=== PATIENT | male | born 1955 | race Caucasian/White ===

== ENCOUNTER 2024-04-02 22:06 | Emergency (ER) | payer OTHER, SELFPAY ==
[2024-04-02 22:09] VITALS: BP 197/109; PULSE 108; RESP 16; TEMP 36.4; O2SAT 100
--- NOTE | 2024-04-02 23:59 | PC.NURSE ---
Pt and family walked out due to wait times. This RN advised them to follow up with nearest ED for new or worsening symptoms.
== END 2024-04-03 00:11 | disposition left against medical advice (07) ==
LOC: ANHED 04-03 00:08
PROVIDERS: PCP Family Medicine
DX: Z53.21 Procedure and treatment not carried out due to patient leaving prior to being seen by health care provider (principal)
CPT/HCPCS: 99199

== ENCOUNTER 2024-08-27 17:49 | Emergency (ER) | payer MEDICARE, OTHER, SELFPAY ==
--- NOTE | ~2024-08-27 | XR_ITS ---
EXAM: XR hand RT min 3V DATE: 08/27/2024 18:44 HISTORY: post reduction . COMPARISON: Same date at 6:06 PM. FINDINGS/IMPRESSION: Successful interval reduction of the third and fourth PIP joint dislocations. Sm all ossific fragments adjacent to the posteromedial and anterior aspects of the third PIP joint, uncl ear donor sites. Reviewed, dictated and finalized at location K.
--- NOTE | ~2024-08-27 | XR_ITS ---
EXAM: XR hand RT min 3V DATE: 08/27/2024 18:08 HISTORY: injury to the 3rd and 4th digits . COMPARISON: 10/12/2008. FINDINGS: Uncomplicated appearing screw and plate hardware at the distal radius. Old ulnar styloid f racture. Mild scattered degenerative change. Dislocations of the third and fourth PIP joints, with ap proximately one half shaft width medial and one shaft width posterior dislocation. A small fracture f ragment is noted along the medial aspect of the third PIP joint, unclear donor site. IMPRESSION: Fracture dislocation of the right third PIP joint. Dislocation of the right fourth PIP cassius int. Reviewed, dictated and finalized at location K. IMPRESSION: Fracture dislocation of the right third PIP joint. Dislocation of t he right fourth PIP joint.
--- OUTSIDE RECORDS SUMMARY | 2024-08-27 17:52 | XMS_ITS | Clinical Summary ---
Author Organization [facility] Address [address] [place] [address] Care Team Providers Care Health Data Administrator Name Role Phone Juan Villa MD Primary Care Provider + Allergies No known active allergies Medications ascorbic acid, vitamin C, 500 mg capsule 500 mg Ac tive calcium carbonate (CALTRATE 600 ORAL) Rx: Caltrate 600 1500 (600 Ca) MG Tablet Active ajadifcg-vuv-MD-lycopen- lutein 300-600-300 mcg tablet Rx: Centrum Silver 50+Men - Tablet Active inulin/vit D3/calcium/sorbitol (FIBER CHOICE PLUS CALCIUM ORAL) Active mecobalamin, vitamin B12, 5,000 mcg tablet,disintegrating Active vitamin D3-folic acid 125 mcg (5,000 unit)-1 mg tablet 09/17/19 21 Active levETIRAcetam XR (KEPPRA XR) 500 mg 24 hr tablet TAKE 4 TABLETS DAILY 360 tablet 3 10/23/19 24 Active clonazePAM (KlonoPIN) 1 mg tablet Take 1.5 tablets (1.5 mg total) by mouth nightly 135 tablet 1 01/23/20 24 Active PARoxetine (PAXIL) 20 mg tabletIndications:DAREN (generalized anxiety disorder),Depression, unspecified depression type TAKE 3 TABLETS EVERY MORNING 270 tablet 3 04/18/20 24 Active meloxicam (MOBIC) 15 mg tabletIndications:Osteoa rthritis, unspecified osteoarthritis type, unspecified site TAKE 1 TABLET DAILY 90 tablet 1 04/25/20 24 Active tamsulosin (FLOMAX) 0.4 mg extended release capsule 1 capsule (0.4 mg total) Take 1 cap per day. Active atorvastatin (LIPITOR) 20 mg tabletIndications:Pure hypertriglyceridemia TAKE 1 TABLET DAILY 90 tablet 1 05/31/19 25 Active Active Problems Problem Noted Date Diagnosed Date Insomnia due to medical condition 05/21/2024 Closed displaced fracture of neck of right fifth metacarpal bone 03/20/2024 Closed displaced fracture of neck of left fifth metacarpal bone 03/20/2024 Closed displaced fracture of shaft of fifth metacarpal bone of left hand 03/20/2024 Left hand pain 03/18/2024 Assessment & Plan (04/12/2024 2:28 PM TROLLEY CAR OPERATOR): - continue care per ortho Assessment & Plan (03/18/2024 4:07 PM TROLLEY CAR OPERATOR): - xray reviewed by me - displaced oblique fx of the 5th metacarpal - pt placed in ulnar gutter splint - pt to f/u with ortho hand for eval for surgery vs. Casting. Chronic right shoulder pain 10/11/2023 Assessment & Plan (10/11/2023 4:38 PM CDT): - suspect OA - continue meloxicam - referral to ortho and xray ordered Pure hypertriglyceridemia 03/31/2023 Assessment & Plan (04/12/2024 2:28 PM TROLLEY CAR OPERATOR): - stable - continue atorvastatin Assessment & Plan (10/11/2023 4:40 PM CDT): - stable - continue atorvastatin Assessment & Plan (03/31/2023 2:58 PM TROLLEY CAR OPERATOR): - stable - continue current medication Rib pain 01/25/2022 Assessment & Plan (01/25/2022 3:23 PM CDT): - suspect just bruising to area but will check xray given pt sensation of popping in the rib area with certain movements - tylenol for pain Encounter for annual wellness exam in Medicare p atient 12/21/2021 Assessment & Plan (04/12/2024 2:27 PM TROLLEY CAR OPERATOR): - Reviewed with the patient BMI, blood pressure, diet, exercise, and encouraged healthy lifestyle choices. - Screened for high risk behaviors, diet and exercise habits, and symptoms of depression. - check screening labs - encouraged regular exercise, healthy lifestyle, obtain/maintain healthy weight Assessment & Plan (03/31/2023 2:57 PM TROLLEY CAR OPERATOR): - Reviewed with the patient BMI, blood pressure, diet, exercise, and encouraged healthy lifestyle choices. - Screened for high risk behaviors, diet and exercise habits, and symptoms of depression. - reviewed screening labs - encouraged regular exercise and weight loss Assessment & Plan (12/21/2021 5:03 PM CDT): - Reviewed with the patient BMI, blood pressure, diet, exercise, and encouraged healthy lifestyle choices. - Screened for high risk behaviors, diet and exercise habits, and symptoms of depression. - check screening labs - encouraged regular exercise Benign prostatic hyperplasia with urinary hesita ncy 04/17/2020 Assessment & Plan (04/12/2024 2:28 PM TROLLEY CAR OPERATOR): - uncontrolled - offered urology referral but pt refused Assessment & Plan (10/11/2023 4:37 PM CDT): - poor control - continue flomax 1 tab daily - offered referral to urology but pt refused. Assessment & Plan (03/31/2023 2:56 PM TROLLEY CAR OPERATOR): - uncontrolled - increase flomax to 0.8mg daily - if no improvement will ref to urology for eval Assessment & Plan (02/12/2021 4:53 PM CDT): - stable - continue current medication Assessment & Plan (04/17/2020 2:15 PM TROLLEY CAR OPERATOR): - uncontrolled - start flomax - f/u in 3-6 mo for re-eval Osteoarthritis 04/17/2020 Assessment & Plan (03/31/2023 2:57 PM TROLLEY CAR OPERATOR): - stable - continue current medication Assessment & Plan (04/17/2020 2:15 PM TROLLEY CAR OPERATOR): - stable - continue current medication Depression 02/15/2019 Assessment & Plan (04/12/2024 2:27 PM TROLLEY CAR OPERATOR): - stable but still sx - continue paxil 60 mg daily - offered to start trazodone or seroquel; pt has failed wellbutrin in the past - pt not interested in further medication. Pt also refusing change in med to alternate ssri. Assessment & Plan (03/31/2023 2:57 PM TROLLEY CAR OPERATOR): - stable - continue current medication Assessment & Plan (04/17/2020 2:15 PM TROLLEY CAR OPERATOR): - stable - continue current medication Assessment & Plan (10/21/2019 1:39 PM CDT): - stable - continue paxil 60mg daily DAREN (generalized anxiety disorder) 02/15/2019 Assessment & Plan (04/12/2024 2:27 PM TROLLEY CAR OPERATOR): - stable - continue paxil as noted above. Assessment & Plan (10/11/2023 4:37 PM CDT): - uncontrolled - rec counseling - rec addition of seroquel but pt refusing - continue paxil. - f/u if sx worsen or wants to start medication. Assessment & Plan (03/31/2023 2:57 PM TROLLEY CAR OPERATOR): - stable - continue current medication Assessment & Plan (12/21/2021 8:43 PM CDT): - stable - continue current medication - add wellbutrin 150mg daily - f/u in 3 mo Assessment & Plan (04/17/2020 2:15 PM TROLLEY CAR OPERATOR): - stable - continue current medication Assessment & Plan (10/21/2019 1:39 PM CDT): - stable - continue paxil 60mg daily Overweight 02/15/2019 Assessment & Plan (10/21/2019 1:40 PM CDT): - dietary control; pt unable to exercise Other obesity due to excess calories 05/19/2017 Melanocytic nevus 12/09/2015 Seborrheic keratosis 12/09/2015 Assessment & Plan (02/12/2021 4:53 PM CDT): - pt reassured - f/u prn Cerebellar ataxia 07/27/2015 Assessment & Plan (05/25/2024 10:47 PM TROLLEY CAR OPERATOR): 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 His symptoms are worse axially compared to appendicular, and he has marked difficulty with speech and eye movements. At this time, he is unable to walk without assistance of a walker (or leaning heavily on a wall) and struggles somewhat to stand without support. 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 He also has an intermittent tremor of his head and possibly hands which is mild compared to his degree of ataxia and for which he previously took primidone (stopped in an effort to improve his balance). His symptoms are overall likely worse due to prior alcohol use, and have worsened in the past several years due to multiple family losses an stress. He continues to struggle with falls, and remains uninterested in physical therapy despite this. Last MRI in 2019 was unchanged from prior despite worsening of gait. His finger bryan and other vision-based reaching tests were worse today, although it is unclear if this is due to wearing glasses with an outdated prescription (he broke his most recent pair) or progression of his disease. No other family members have severe ataxia at this time. Despite his limitations, he continues to enjoy being outdoors and mowing the lawn and using his tractor. His panic attacks have stopped since discontinuing bupropion, and his mood is ok on paroxetine. His insomnia has responded well to 1.5 mg clonazepam at night, and he didn't tolerate a wean of this in the past. Overall he feels that he would like to not change any of his current routines or medications despite the progressive nature of his disease. He would also prefer to not have to come in to the city again if possible, and has requested telehealth visits in the future. 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 His symptoms are worse axially compared to appendicular, and he has marked difficulty with speech and eye movements. At this time, he is unable to walk without assistance of a walker (or leaning heavily on a wall) and struggles somewhat to stand without support. 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 He also has an intermittent tremor of his head and possibly hands which is mild compared to his degree of ataxia and for which he previously took primidone (stopped in an effort to improve his balance). His symptoms are overall likely worse due to prior alcohol use, and have worsened in the past two years due to multiple family losses an stress. He continues to struggle with falls, and remains uninterested in physical therapy despite this. Last MRI in 2019 was unchanged from prior despite worsening of gait. His finger bryan and other vision-based reaching tests were worse today, although it is unclear if this is due to wearing glasses with an outdated prescription (he broke his most recent pair) or progression of his disease. No other family members have severe ataxia at this time. Despite his limitations, he continues to enjoy being outdoors and mowing the lawn and using his tractor. His panic attacks have stopped since discontinuing bupropion, and his mood is ok on paroxetine. His insomnia has responded well to 1.5mg clonazepam at night, and he does poorly if this is discontinued. Overall he feels that he would like to not change any of his current routines or medications despite the progressive nature of his disease. He would also prefer to not have to come in to the city again if possible, and has requested telehealth visits in the future. Plan: - Continue levetiracetam 500mg - Continue clonazepam 1.5mg qHS - If ever interested in PT would strongly support this, but it seems unlikely - Continue to use walker at all times, avoid falls - Continue paroxetine, can consider switching to escitalopram (better data) or adding a second agent (consider mirtazapine or trazodone) if depression is refractory - Telehealth visits in the future, follow up with Genoveva in [address] 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 This likely represents spinocerebellar ataxia with some exacerbation due to alcohol use in the past. His myoclonus is seldom bothersome with the current dose of Keppra although he thinks worse in the past few years--he is not interested in trying a bigger dose at this time. His gait and balance are much worse in the past few years and he has frequent falls, up to twice/day but is still using his walker and is completely opposed to any PT, OT, ST or home exercise program. Stopping primidone did not help much with the balance but also did not really worsen tremor. His MRI ordered by Dr. Muller in 06/2019 was reviewed by him and reportedly pretty normal with no explanation for the worsened balance. He still mows grass and works in his yard. His depression is decent on paroxetine and bupropion and--he is grieving the sudden and unexpected loss of his --his daughter and her children live with him. His sleep and jerking are better with clonazepam at 1.5 mg at bedtime, and he doesn't note too much morning grogginess or worsened balance so we will continue this. Tamsulosin has helped nocturia though he still has issues with slow stream and incomplete emptying and could discuss a bigger dose with PMD but would need to watch for lightheadedness. Recommendations 1. Same Keppra (could consider bigger dose), same paroxetine. 2. Could discuss more tamsulosin with PMD but would need to watch for lightheadedness. 3. Not interested in PT or APDA youtube channel exercises. 4. Use upright walker, wheelchair as needed. 5. Same paroxetine and bupropion. 6. Same clonazepam--1.5 tabs qhs. 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 This likely represents spinocerebellar ataxia with some exacerbation due to alcohol use in the past. His myoclonus is seldom bothersome with the current dose of Keppra although he thinks worse in the past few years--he is not interested in trying a bigger dose at this time. His gait and balance are much worse in the past few years and he has frequent falls, up to twice/day but is still using his walker and is completely opposed to any PT, OT, ST or home exercise program. Stopping primidone did not help much with the balance but also did not really worsen tremor. His MRI ordered by Dr. Muller in 06/2019 was reviewed by him and reportedly pretty normal with no explanation for the worsened balance. He still mows grass and works in his yard. His depression is decent on paroxetine and bupropion and--he is grieving the sudden and unexpected loss of his --his daughter and her children live with him. His sleep and jerking are better with clonazepam at 1.5 mg at bedtime, and he doesn't note too much morning grogginess or worsened balance so we will continue this. Tamsulosin has helped nocturia though he still has issues with slow stream and incomplete emptying and could discuss a bigger dose with PMD but would need to watch for lightheadedness. Recommendations 1. Same Keppra (could consider bigger dose), same paroxetine. 2. Could discuss more tamsulosin with PMD but would need to watch for lightheadedness. 3. Not interested in PT or APDA youtube channel exercises. 4. Use upright walker, wheelchair as needed. 5. Same paroxetine and bupropion. 6. Same clonazepam--1.5 tabs qhs. 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 This likely represents spinocerebellar ataxia with some exacerbation due to alcohol use in the past. His myoclonus is seldom bothersome with the current dose of Keppra although he thinks worse in the past few years--he is not interested in trying a bigger dose at this time. His gait and balance are much worse in the past few years and he has frequent falls, up to twice/day. Stopping primidone did not help much with the balance but also did not really worsen tremor. His MRI ordered by Dr. Muller in 06/2019 was reviewed by him and reportedly pretty normal with no explanation for the worsened balance. He refuses PT but I gave him info on APDA youtube channel exercises. He is still able to walk with a walker and still mows grass and works in his yard. His depression is decent on paroxetine and he is on a large dose and not interested in adding on another medicine (bupropion) or switching to an SNRI at this point--he is grieving the sudden and unexpected loss of his --his daughter and her children live with him. His sleep and jerking are better with clonazepam at 1.5 mg at bedtime, and he doesn't note too much morning grogginess or worsened balance so we will continue this. Tamsulosin has helped nocturia though he still has issues. Recommendations 1. Same Keppra (could consider bigger dose), same paroxetine. 2. Start APDA youtube channel exercises. 3. Not interested in PT. 4. Use upright walker, wheelchair as needed. 5. Could consider switching paroxetine to SNRI or adding bupropion but he is not interested at this time. 6. Same clonazepam--1.5 tabs qhs. 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 This likely represents spinocerebellar ataxia with some exacerbation due to alcohol use in the past. His myoclonus is still a bit bothersome with the current dose of Keppra and he thinks worse in the past few years--he is not interested in trying a bigger dose at this time. His gait and balance are much worse in the past few years and he has frequent falls. Stopping primidone did not help much with the balance but also did not really worsen tremor. His MRI ordered by Dr. Muller in 06/2019 was reviewed by him and reportedly pretty normal with no explanation for the worsened balance. His depression is decent on paroxetine and he is on a large dose and not interested in adding on another medicine (bupropion) or switching to an SNRI. His sleep is only so-so with clonazepam and he still could have some jerking at night. We will try to increase clonazepam to 1.5 mg at bedtime, watching for morning grogginess or worsened balance. He does have a power chair. He is not interested in PT but I gave him info on APDA youtube exercises (though he does not have PD) and I suggested he use his walker at all times. Tamsulosin has helped nocturia though he still has issues. We will see if extra clonazepam helps though they could try bid or higher dose of tamsulosin but would need to watch for lightheadedness. Recommendations 1. Same Keppra (could consider bigger dose), same paroxetine. 2. Start APDA youtube channel exercises. 3. Not interested in PT. 4. Use upright walker. 5. Could consider switching paroxetine to SNRI or adding bupropion. 6. Increase clonazepam to 1.5 tabs qhs. 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 This likely represents spinocerebellar ataxia with some exacerbation due to alcohol use in the past. His myoclonus is reasonably well controlled with the current dose of Keppra. His gait and balance are much worse in the past few years and he has frequent falls. Stopping primidone did not help much with the balance but also did not really worsen tremor. His MRI ordered by Dr. Muller in 06/2019 was reviewed by him and reportedly pretty normal with no explanation for the worsened balance. His depression is well controlled on paroxetine. His sleep is fairly good with clonazepam though he still could have some jerking at night. He is not interested in PT but I gave him info on APDA youtube exercises (though he does not have PD) and I suggested he use his walker at all times. Tamsulosin has dramatically helped nocturia. Recommendations 1. Same Keppra, same paroxetine. 2. Start APDA youtube channel exercises. 3. Not interested in PT. 4. Use walker (he refuses). 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 This likely represents spinocerebellar ataxia with some exacerbation due to alcohol use in the past. His myoclonus is reasonably well controlled with the current dose of Keppra. His gait and balance are much worse in the past year. Stopping primidone did not help much with the balance but also did not really worsen tremor. His MRI ordered by Dr. Muller in 06/2019 was reviewed by him and reportedly pretty normal with no explanation for the worsened balance. His depression is well controlled on paroxetine. His sleep is fairly good with clonazepam though he still could have some jerking at night. He is not interested in PT but I gave him info on APDA youtube exercises (though he does not have PD). He has some incomplete emptying and I suggested he discuss tamsulosin with his PMD but watch for lightheadedness. Recommendations 1. Same Keppra, same paroxetine. 2. Start APDA youtube channel exercises. 3. Could consider tamsulosin with PMD if he is in interested. 4. Not interested in PT. 5. Use walker (he refuses). Essential tremor 04/16/2010 Assessment & Plan (04/12/2024 2:26 PM TROLLEY CAR OPERATOR): - stable - continue current medication Assessment & Plan (03/31/2023 2:57 PM TROLLEY CAR OPERATOR): - stable - continue current medication Resolved Problems Problem Noted Date Diagnosed Date Resolved Date Cerebral ataxia 10/17/2023 10/17/2023 Sepsis without acute organ dysfunction 12/01/2021 03/29/2023 Acute cholecystitis 12/01/2021 03/29/20 23 Sleep disturbance 02/15/2019 03/29/2023 Assessment & Plan (10/21/2019 1:40 PM CDT): - continue clonazepam for sleep disturbance due to ataxia Major depressive disorder, single episode 05/19/2017 04/12/2024 Assessment & Plan (10/11/2023 4:37 PM CDT): - uncontrolled - rec counseling - rec addition of seroquel but pt refusing - continue paxil. - f/u if sx worsen or wants to start medication. Assessment & Plan (03/31/2023 2:57 PM TROLLEY CAR OPERATOR): - stable - continue current medication - f/u in 6 mo or sooner prn Assessment & Plan (01/25/2022 3:24 PM CDT): - stable - continue current medication - encouraged pt to get counselor - consider increased dose of paxil if sx not improved over next month. - f/u in Nov or sooner prn Assessment & Plan (12/21/2021 8:42 PM CDT): - uncontrolled - will add wellbutrin 150mg daily - f/u in 3 mo Encounters Date Type Department Care Team Description 05/29/2024 1:30 PM TROLLEY CAR OPERATOR Office Visit [facility] [address] [place] [address] [place] [phone] Fawad Cook MD Closed displaced fracture of shaft of fifth metacarpal bone of left hand with delayed healing, subsequent encounter (Primary Dx) 05/29/2024 12:50 PM TROLLEY CAR OPERATOR Ancillary Procedure [facility] [address] [place] [address] [place] [phone] from Last 3 Months Immunizations Immunization Administration Dates Next Due Influenza, Quadrivalent, Hig h Dose, Preservative Free, Intrr 03/31/2023,01/25/2022 Influenza, Quadrivalent, Spl it, Preservative Free, Intramuscular 02/15/2019,01/26/2015,12/24/2014 Influenza, Unspecified 03/18/2024(Deferr ed: Patient Refused),01/13/2021 ISO Group SARS-CoV-2 Monovalent Vaccination (12+ Yrs) PURPLE 01/13/2021,12/23/2020 Pneumococcal Conjugate PCV 13 12/21/2021 Pneumococcal Conjugate Pcv20 03/31/2023 Tdap 10/28/2015 ZOSTER LIVE 08/27/2014 Surgical History Surgery Date Site/Laterality Comments WRIST SURGERY 09/29/2008 - 10/28/2008 Right KNEE SURGERY 09/29/2008 - 10/28/2008 Right CHOLECYSTECTOMY 02 Dec 2021 ORIF METACARPAL FRACTURE 03/26/2024 Left 5TH OR AND PINNING FRACTURE SURGERY 12 Oct 2008, 26 Mar 2024 Medical History Medical History Date Comments Depression BPH (benign prostatic hyperplasia) Tremors of nervous system Cerebellar ataxia (HCC) Alcohol abuse 1989 COPD (chronic obstructive pulmonary disease) (HC C) Family History Medical History Relation Name Comments Alcohol abuse Brother 2 Logan Gillis Drug abuse Daughter 2 July [place] Kidney disease Daughter 3 Varsha Gillis Miscarriages / Stillbirths Daughter 4 Shawna Hankins Alcohol abuse Father Markell Elis Cancer Father Markell Elis Depression Father Markell Elis Alcohol abuse Father's Brother 1 Almira Elis Depression Father's Brother 1 Almira Elis Alcohol abuse Father's Brother 2 Ari Dykese Cancer Father's Brother 2 Ari Elis Depression Father's Brother 2 Ari Dykese Alcohol abuse Father's Brother 3 Cristobal Gillis Alzheimer's disease Father's Sister Luigi Harrison Hearing loss Mother Wili Gillis Heart disease Paternal Grandfather Melecio Gillis Relation Name Status Comments Brother 1 Brother 2 Logan Gillis Daughter 1 Alive Daughter 2 July Daughter 3 Varsha Gillis Daughter 4 Shawna Hankins Father Markell Gillis (Age 80) Father's Brother 1 Jose Dykese Father's Brother 2 Ari Dykese Father's Brother 3 Cristobal Dykese Father's Sister Luigi Harrison Mother Wili Gillis Alive Paternal Grandfather Melecio Gillis Sister Alive Social History Tobacco Use Types Packs/Day Years Used Date Smoking Tobacco: Never Cigarettes Smokeless Tobacco: Current Snuff Tobacco Cessation:Ready to Q uit: No; Counseling Given: Not Answered Comments:Didn't start until I when through an alcohol rehab Alcohol Use Standard Drinks/Week Comments Not Currently 0 (1 standard drink = 0.6 oz pur e alcohol) AUDIT-C Answer Date Recorded Q1: How often do you have a drink containing alcohol? Never 04/12/2024 Q2: How many drinks containi ng alcohol do you have on a typical day when you are drinking? Patient does not drink Q3: How often do you have si x or more drinks on one occasion? Never 04/12/2024 PHQ-2 Answer Date Recorded PHQ-2 Total Score (If total score is 3 or more points, staff should administer the PHQ-9) 3 04/11/2024 PHQ-9 Answer Date Recorded PHQ-9 Total Score 5 04/11/2024 Personal Safety Answer Date Recorded Have you ever been in or are you currently in a harmful physical or emotional relationship or is someone making you feel afraid or unsafe? Denies 03/26/2024 Sex and Gender Information Value Date Recorded Sex Assigned at Not on file Legal Sex Male 3:22 AM TROLLEY CAR OPERATOR Gender Identity Male 01/14/2019 8:10 PM CDT Sexual Orientation Straight 01/14/2019 8: 10 PM CDT Obstetrics History Last Filed Vital Signs Vital Sign Reading Time Taken Comments Blood Pressure 108/80 04/12/2024 1:55 PM TROLLEY CAR OPERATOR Pulse 96 04/12/2024 1:55 PM TROLLEY CAR OPERATOR Temperature 36.8 C (98.2 F) 04/12/2024 1:55 PM TROLLEY CAR OPERATOR Respiratory Rate 22 04/12/2024 1:55 PM TROLLEY CAR OPERATOR Oxygen Saturation 95% 04/12/2024 1:55 PM TROLLEY CAR OPERATOR Inhaled Oxygen Concentration - - Weight 98.2 kg (216 lb 8 oz) 04/12/2024 1:55 PM TROLLEY CAR OPERATOR Height 180.3 cm (5' 11 ) 04/15/2024 9:50 AM TROLLEY CAR OPERATOR Body Mass Index 30.2 04/12/2024 1:55 PM TROLLEY CAR OPERATOR Plan of Treatment Health Maintenance Due Date Last Done Comments Hepatitis C Screening 1955 Hepatitis B Screening 1974 Zoster Vaccine (2 of 3) 10/22/2014 08/27/2014 Covid-19 Vaccine (3 - 2023-2 5 season) 2023 01/13/2021, 12/23/2020 Influenza Vaccine (Season Ended) 2024 03/31/2023, 01/25/2022, 01/13/2021, Additional history exists Prostate Cancer Screening-PSA 03/17/2025, 12/02/2021, 04/17/2020, Additional history exists Colon Cancer Screening-Colonoscopy 03/20/2025 03/20/2015 Depression Screening 04/12/2025 04/12/2024, 04/12/2024, 03/31/2023, Additional history exists Fall Risk Assessment 04/12/2025 04/12/2024, 03/26/2024, 03/31/2023, Additional history exists Well Visit 65+ 04/12/2025 04/12/2024, 1205/2022, 12/21/2021, Additional history exists DTaP/Tdap/Td Vaccine (2 - Td or Tdap) 10/27/2025 10/28/2015 Colon Cancer Screening-CT Colonography Discontinued 03/20/2015 Colon Cancer Screening-DNA Stool Discontinued 03/20/20 Colon Cancer Screening-FIT Discontinued 03/20/2015 Colon Cancer Screening-Sigmoidoscopy Discontinued 03/20/2015 Pneumococcal vaccine 65+ Completed 03/31/2023, 11/30 Medical Devices Implanted Type Area Smooth Stucco Resurfacer Device Identifier Shelf Expiration Date Model / Serial / Lot Right Wrist Right: Wrist Knee Replacement Right: Knee 1.1 K-Wire Implanted:Qty: 2 on 03/26/2024 by Fawad Cook MD at [facility] Left: Metacarpal AR[employer] [id number] 3 / / Explanted Type Area Smooth Stucco Resurfacer Device Identifier Shelf Expiration Date Model / Serial / Lot [employer] Plate Bone Rotation Correction 5 Hole Small Bone 1.6mm Ti [id number] - [id number] Explanted:Qty: 1 on 03/26/2024 by Fawad Cook MD at [facility] Plate Left: Metacarpal [employer] [id number] / / [employer] Screw Bone Cortical Threaded 1.6x8mm Ti [id number] - [id number] Explanted:Qty: 1 on 03/26/2024 by Fawad Cook MD at [facility] Screw Left: Metacarpal [employer] [id number] 8 / / [employer] Screw Bone Threaded Locking 1.6x12mm Ti [id number] - [id number] Explanted:Qty: 1 on 03/26/2024 by Fawad Cook MD at [facility] Screw Left: Metacarpal [employer] [id number]- 12 / / Procedures Procedure Name Priority Date/Time Associated Diagnosis Comments XR HAND LEFT 3 OR MORE VIEWS Schedule Routine, Read Routine (OP Routine) 05/30/2024 6:25 AM TROLLEY CAR OPERATOR Closed displaced fracture of shaft of fifth metacarpal bone of left hand with delayed healing, subsequent encounter PSA SCREEN Routine 03/17/2023 1:51 PM TROLLEY CAR OPERATOR Encounter for Medicare annual wellness exam COLONOSCOPY Routine 03/20/2015 from Last 3 Months or Most Recently Relevant to Health Maintenance Results * XR Hand Left 3 or More Views (05/30/2024 6:25 AM TROLLEY CAR OPERATOR) Anatomical Region Laterality Modality Upper Extremities, Hand Left Computed Radiography Narrative 05/30/2024 6:25 AM TROLLEY CAR OPERATOR AP lateral and oblique x-rays of the left hand on the mini C-arm show healing of a 5th metacarpal fracture Fawad Cook MD IMG XR PROCEDURES Final Result * PSA screen (03/17/2023 1:51 PM TROLLEY CAR OPERATOR) PSA-Total 3.17 <=5.40 ng/mL HEIDI Comment: Interpretive Data AGE SEX REFERENCE INTERVAL 0 minutes-150 years Female None 0 minutes-49 years Male None 50-59 years Male 0-3.90 60-69 years Male 0-5.40 70-79 years Male 0-6.20 80-150 years Male 0-6.20 The Wilber PSA Total assay procedure was used. Results from different manufacturers or methods may not be comparable. Serial testing should be performed using the same method. Current interpretive data last revised 21. Testing performed by: [facility], [address] [place] [address]., [id number] Blood 03/17/2023 1:51 PM TROLLEY CAR OPERATOR 03/17/2023 5:03 PM TROLLEY CAR OPERATOR Juan Villa MD LAB BLOOD ORDERABLES Fin al Result Performing Organization Address City/State/[facility] Co de Phone Number HEIDI [address] [facility] Department [place] [address] * Colonoscopy (03/20/2015) Anatomical Region Laterality Modality Other 03/20/2015 Historical Provider ENDOSCOPY PROCEDURES Deneen l Result from Last 3 Months or Most Recently Relevant to Health Maintenance Insurance MEDICARE FOR LIFE [place] [id number] MEDICARE FOR LIFE Advance Directives For more information, please contact: [phone] * LIMITED - No CPR (Latest Code Status on File) Date Activated Date Inactivated Comments 12/01/2021 11:19 PM 12/04/2021 5:16 PM Question Answer Comments Provide aggressive medical m anagement before a full cardiopulmonary arrest occurs. Use antibiotics, IV Fluids, and medical treatment unless specifically selected below: No intubation Discussed with the following attending physician : No intubation/no cpr * Full Code Date Activated Date Inactivated Comments 12/01/2021 7:23 PM 12/01/2021 11:19 PM Care Teams Health Data Administrator Relationship Specialty Start Date End Date Juan Villa MD [address] [place] [id number] PCP - General Family Medicine 02/15/19
--- OUTSIDE RECORDS SUMMARY | 2024-08-27 17:52 | XMS_ITS | Referral Summary ---
Author Organization [facility] Address [address] [place] [address] Care Team Providers Care Director Process Name Role Phone Juan Villa MD Primary Care Provider + Encounters Date Type Department Care Team Description 05/29/2024 12:50 PM MARKETING SERVICES COORDINATOR Ancillary Procedure [facility] [address] [place] [address] [address] [place] [address] 05/29/2024 1:30 PM MARKETING SERVICES COORDINATOR Office Visit [facility] [address] [place] [address] [address] [place] [address] Fawad Cook MD Closed displaced fracture of shaft of fifth metacarpal bone of left hand with delayed healing, subsequent encounter (Primary Dx) from Last 3 Months Allergies No known active allergies Medications ascorbic acid, vitamin C, 500 mg capsule 500 mg Ac tive calcium carbonate (CALTRATE 600 ORAL) Rx: Caltrate 600 1500 (600 Ca) MG Tablet Active horypovl-wpr-AF-lycopen- lutein 300-600-300 mcg tablet Rx: Centrum Silver 50+Men - Tablet Active inulin/vit D3/calcium/sorbitol (FIBER CHOICE PLUS CALCIUM ORAL) Active mecobalamin, vitamin B12, 5,000 mcg tablet,disintegrating 21 Active vitamin D3-folic acid 125 mcg (5,000 [...] 03/18/2024 Assessment & Plan (04/12/2024 2:28 PM MARKETING SERVICES COORDINATOR): - continue care per ortho Assessment & Plan (03/18/2024 4:07 PM MARKETING SERVICES COORDINATOR): - xray reviewed by me - displaced [...] 03/31/2023 Assessment & Plan (04/12/2024 2:28 PM MARKETING SERVICES COORDINATOR): - stable - continue atorvastatin Assessment & Plan (10/11/2023 4:40 PM CDT): - stable - continue atorvastatin Assessment & Plan (03/31/2023 2:58 PM MARKETING SERVICES COORDINATOR): - stable - continue current medication Rib pain 01/25/2022 Assessment & Plan (01/25/2022 3:23 PM CDT): - suspect just bruising to area but will check xray given pt sensation of popping in the rib area with certain movements - tylenol for pain Encounter for annual wellness exam in Medicare p atient 12/21/2021 Assessment & Plan (04/12/2024 2:27 PM MARKETING SERVICES COORDINATOR): - Reviewed with the patient BMI, blood pressure, diet, exercise, and encouraged healthy lifestyle choices. - Screened for high risk behaviors, diet and exercise habits, and symptoms of depression. - check screening labs - encouraged regular exercise, healthy lifestyle, obtain/maintain healthy weight Assessment & Plan (03/31/2023 2:57 PM MARKETING SERVICES COORDINATOR): - Reviewed with the patient BMI, blood [...] 04/17/2020 Assessment & Plan (04/12/2024 2:28 PM MARKETING SERVICES COORDINATOR): - uncontrolled - offered urology referral but pt refused Assessment & Plan (10/11/2023 4:37 PM CDT): - poor control - continue flomax 1 tab daily - offered referral to urology but pt refused. Assessment & Plan (03/31/2023 2:56 PM MARKETING SERVICES COORDINATOR): - uncontrolled - increase flomax to 0.8mg daily - if no improvement will ref to urology for eval Assessment & Plan (02/12/2021 4:53 PM CDT): - stable - continue current medication Assessment & Plan (04/17/2020 2:15 PM MARKETING SERVICES COORDINATOR): - uncontrolled - start flomax - f/u in 3-6 mo for re-eval Osteoarthritis 04/17/2020 Assessment & Plan (03/31/2023 2:57 PM MARKETING SERVICES COORDINATOR): - stable - continue current medication Assessment & Plan (04/17/2020 2:15 PM MARKETING SERVICES COORDINATOR): - stable - continue current medication Depression 02/15/2019 Assessment & Plan (04/12/2024 2:27 PM MARKETING SERVICES COORDINATOR): - stable but still sx - continue paxil 60 mg daily - offered to start trazodone or seroquel; pt has failed wellbutrin in the past - pt not interested in further medication. Pt also refusing change in med to alternate ssri. Assessment & Plan (03/31/2023 2:57 PM MARKETING SERVICES COORDINATOR): - stable - continue current medication Assessment & Plan (04/17/2020 2:15 PM MARKETING SERVICES COORDINATOR): - stable - continue current medication Assessment & Plan (10/21/2019 1:39 PM CDT): - stable - continue paxil 60mg daily DAREN (generalized anxiety disorder) 02/15/2019 Assessment & Plan (04/12/2024 2:27 PM MARKETING SERVICES COORDINATOR): - stable - continue paxil as noted above. Assessment & Plan (10/11/2023 4:37 PM CDT): - uncontrolled - rec counseling - rec addition of seroquel but pt refusing - continue paxil. - f/u if sx worsen or wants to start medication. 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 Assessment & Plan (03/31/2023 2:56 PM MARKETING SERVICES COORDINATOR): - stable - continue current medication per [...] 04/16/2010 Assessment & Plan (04/12/2024 2:26 PM MARKETING SERVICES COORDINATOR): - stable - continue current medication Assessment & Plan (03/31/2023 2:57 PM MARKETING SERVICES COORDINATOR): - stable - continue current medication Resolved [...] medication. Assessment & Plan (03/31/2023 2:57 PM MARKETING SERVICES COORDINATOR): - stable - continue current medication - [...] 150mg daily - f/u in 3 mo Immunizations Immunization Administration Dates Next Due Influenza, Quadrivalent, Hig h Dose, Preservative Free, Intrr 03/31/2023,01/25/2022 Influenza, Quadrivalent, Spl it, Preservative Free, Intramuscular 02/15/2019,01/26/2015,12/24/2014 Influenza, Unspecified 03/18/2024(Deferr ed: Patient Refused),01/13/2021 FK [employer] SARS-CoV-2 Monovalent Vaccination (12+ Yrs) PURPLE 01/13/2021,12/23/2020 Pneumococcal Conjugate PCV 13 12/21/2021 Pneumococcal Conjugate Pcv20 03/31/2023 Tdap 10/28/2015 ZOSTER LIVE 08/27/2014 Social History Tobacco Use Types Packs/Day Years [...] on file Legal Sex Male 3:22 AM MARKETING SERVICES COORDINATOR Gender Identity Male 01/14/2019 8:10 PM CDT Sexual Orientation Straight 01/14/2019 8: 10 PM CDT Last Filed Vital Signs Vital Sign Reading Time Taken Comments Blood Pressure 108/80 04/12/2024 1:55 PM MARKETING SERVICES COORDINATOR Pulse 96 04/12/2024 1:55 PM MARKETING SERVICES COORDINATOR Temperature 36.8 C (98.2 F) 04/12/2024 1:55 PM MARKETING SERVICES COORDINATOR Respiratory Rate 22 04/12/2024 1:55 PM MARKETING SERVICES COORDINATOR Oxygen Saturation 95% 04/12/2024 1:55 PM MARKETING SERVICES COORDINATOR Inhaled Oxygen Concentration - - Weight 98.2 kg (216 lb 8 oz) 04/12/2024 1:55 PM MARKETING SERVICES COORDINATOR Height 180.3 cm (5' 11 ) 04/15/2024 9:50 AM MARKETING SERVICES COORDINATOR Body Mass Index 30.2 04/12/2024 1:55 PM MARKETING SERVICES COORDINATOR Plan of Treatment Not on file Medical Devices Implanted Type Area Dry Room Operator Device Identifier Shelf Expiration Date Model / Serial / Lot Right Wrist Right: Wrist Knee Replacement Right: Knee 1.1 K-Wire Implanted:Qty: 2 on 03/26/2024 by Fawad Cook MD at [facility] Left: Metacarpal [employer] [id number] 3 / / Explanted Type Area Dry Room Operator Device Identifier Shelf Expiration Date Model / Serial / Lot [employer] Plate Bone Rotation Correction 5 Hole Small Bone 1.6mm Ti [id number] - [id number] Explanted:Qty: 1 on 03/26/2024 by Fawad Cook MD at [facility] Plate Left: Metacarpal [employer] [id number] 30 / / [employer] Screw Bone Cortical Threaded 1.6x8mm Ti [id number] - [id number] Explanted:Qty: 1 on 03/26/2024 by Fawad Cook MD at [facility] Screw Left: Metacarpal [employer] [id number] 8 / / [employer] Screw Bone Threaded Locking 1.6x12mm Ti [id number] - [id number] Explanted:Qty: 1 on 03/26/2024 by Fawad Cook MD at [facility] Screw Left: Metacarpal [employer] [id number] 12 / / Procedures Procedure Name Priority Date/Time Associated Diagnosis Comments XR HAND LEFT 3 OR MORE VIEWS Schedule Routine, Read Routine (OP Routine) 05/30/2024 6:25 AM MARKETING SERVICES COORDINATOR Closed displaced fracture of shaft of fifth metacarpal bone of left hand with delayed healing, subsequent encounter PSA SCREEN Routine 03/17/2023 1:51 PM MARKETING SERVICES COORDINATOR Encounter for Medicare annual wellness exam COLONOSCOPY Routine 03/20/2015 from Last 3 Months or Most Recently Relevant to Health Maintenance Results * XR Hand Left 3 or More Views (05/30/2024 6:25 AM MARKETING SERVICES COORDINATOR) Anatomical Region Laterality Modality Upper Extremities, Hand Left Computed Radiography Narrative 05/30/2024 6:25 AM MARKETING SERVICES COORDINATOR AP lateral and oblique x-rays of the left hand on the mini C-arm show healing of a 5th metacarpal fracture Fawad Cook MD IMG XR PROCEDURES Final Result * PSA screen (03/17/2023 1:51 PM MARKETING SERVICES COORDINATOR) PSA-Total 3.17 <=5.40 ng/mL HEIDI Comment: Interpretive [...] data last revised 21. Testing performed by: [facility], [address] [place] [address]., [id number] Blood 03/17/2023 1:51 PM MARKETING SERVICES COORDINATOR 03/17/2023 5:03 PM MARKETING SERVICES COORDINATOR Juan Villa MD LAB BLOOD ORDERABLES Fin al Result Performing Organization Address City/State/ZIP Co ny Phone Number R[facility] [address] [facility] Department [place] [address] * Colonoscopy (03/20/2015) Anatomical Region Laterality Modality Other 03/20/2015 Holger Provider ENDOSCOPY PROCEDURES Deneen l Result from Last 3 Months or Most Recently Relevant to Health Maintenance Insurance MEDICARE [facility] [place] [id number] [place] [address] MEDICARE FOR LIFE Advance Directives For more information, please contact: [phone] * LIMITED - No CPR (Latest Code [...] 7:23 PM 12/01/2021 11:19 PM Care Teams Director Process Relationship Specialty Start Date End Date Juan Villa MD [address] [place] [id number] PCP - General Family Medicine 02/15/19
--- OUTSIDE RECORDS SUMMARY | 2024-08-27 17:52 | XMS_ITS | Clinical Summary ---
Author Organization [facility] Address [address] [place] [address] Care Team Providers Care Cow Puncher Name Role Phone Walter Craven MD Primary Care Provider [phone] Social History Tobacco Use Types Packs/Day Years Used Date Smoking Tobacco: Never Assessed Sex and Gender Information Value Date Recorded Sex Assigned at Not on file Legal Sex Male 5:12 PM CDT Gender Identity Not on file Sexual Orientation Not on file Last Filed Vital Signs Vital Sign Reading Time Taken Comments Blood Pressure 124/84 10/28/2016 2:16 PM CDT Pulse 97 10/28/2016 2:16 PM CDT Temperature - - Respiratory Rate - - Oxygen Saturation - - Inhaled Oxygen Concentration - - Weight 100.7 kg (222 lb) 10/28/2016 2:16 PM CDT Height 180.3 cm (5' 11 ) 10/28/2016 2:16 PM CDT Body Mass Index 30.96 10/28/2016 2:16 PM CDT Plan of Treatment Health Maintenance Due Date Last Done Comments Colorectal Cancer Screening Colonoscopy (10 Years) 1955 Hepatitis C 1974 Pneumococcal Vaccine: 50+ Ye ars (1 of 1 - PCV) 2006 Zoster Vaccines (1 of 2) 2006 COVID-19 Vaccine ( - 2023-2 5 season) 2023 DTaP, Tdap and Td Vaccines ( 2 - Td or Tdap) 10/27/2025 10/28/2015 RSV Immunization or 60+ Years (1 - 1-dose 75+ series) 07/17/2031 Meningococcal B Vaccine Aged Out No l onger eligible based on patient's age to complete this topic Meningococcal Vaccine Aged Out No hedy tierney eligible based on patient's age to complete this topic RSV Immunizations Under 20 Months Aged Out No longer eligible based on patient's age to complete this topic Advance Directives Documents on File Type Date Recorded Patient Softball Winder Expl anation Advance Directives and Living Will 10/28/2016 SADVANCE DIRECTIVES Care Teams Cow Puncher Relationship Specialty Start Date End Date Walter Craven MD [address] [place] [address] PCP - General 10/28/15
[2024-08-27 17:57] VITALS: BP 143/95; PULSE 87; RESP 16; TEMP 36.7; O2SAT 98
--- NOTE | 2024-08-27 18:44 | ED.UPPEXIN ---
HPI - Extremity Injury (Upper) General Chief Complaint: Extremity Injury, Upper Stated Complaint: Fall, injury to right middle and ring fingers Time Seen by Provider: 08/27/24 18:12 Source: patient Mode of arrival: ambulatory Limitations: no limitations History of Present Illness HPI narrative: Patient presents to the emergency department for right 3rd and 4th finger injuries. Patient tripped and fell and caught himself with his right hand. He did not hit his head or lose consciousness. Denies any other injuries or focal areas of pain. Reports decreased range of motion in the 3rd and 4th fingers with deformities. Denies numbness. Related Data Allergies Allergy/AdvReac Type Severity Reaction Status Date / Time No Known Allergies Allergy Mild Unverified 08/27/24 17:50 Review of Systems Review of Systems: CONSTITUTIONAL: Denies fever MUSCULOSKELETAL: Reports joint pain, and myalgia. NEUROLOGIC: Denies numbness All systems reviewed & are unremarkable except as noted in HPI and below PMFSH Past Medical History Medical History (Updated 08/27/24 @ 19:28 by Cecilia Butler PA-C) History of seizure disorder History of hyperlipidemia Exam Narrative: GENERAL: Well-appearing, well-nourished, and in no acute distress. HEAD: Normocephalic, atraumatic. EYES: EOMI. EXTREMITIES: Decreased active range of motion in the right 3rd and 4th finger with obvious deformity at the PIP joints SKIN: Warm, dry, no rash. NEURO: No focal deficits. Alert and oriented x3. PSYCH: Normal mood and affect Course Course Emergency Course: Patient updated on his workup and agrees with plan of care Vital Signs Vital signs: Vital Signs Temperature 98.1 F 08/27/24 17:57 Pulse Rate 87 08/27/24 17:57 Respiratory Rate 16 08/27/24 17:57 Blood Pressure 143/95 H 08/27/24 17:57 Pulse Oximetry 98 08/27/24 17:57 Oxygen Delivery Room Air 08/27/24 17:57 Temperature 98.1 F 08/27/24 17:57 Pulse Rate 87 08/27/24 17:57 Respiratory Rate 16 08/27/24 17:57 Blood Pressure 143/95 H 08/27/24 17:57 Pulse Oximetry 98 08/27/24 17:57 Oxygen Delivery Room Air 08/27/24 17:57 Procedures Orthopedic Joint Reduction Joint #1: Orthopedic Joint Reduction Date: 08/27/24 Time Out Performed: Yes Side: right Joint Reduction Location: finger (3rd) Analgesia: nerve block Pre-Procedure Neuro Vascular Exam: normal Local Anesthesia: lidocaine 1% Amount of anesthesic used (mL): 2 Technique used: direct manipulation Post-reduction neuro exam: intact Post-reduction vascular: intact Post Reduction X-Ray Obtained: Yes Post Reduction X-Ray Results: reduced Splint Applied: Yes Patient Tolerated Procedure: well and no complications Joint #2: Orthopedic Joint Reduction Date: 08/27/24 Time Out Performed: Yes Side: right Joint Reduction Location: finger (4th) Analgesia: nerve block Pre-Procedure Neuro Vascular Exam: normal Local Anesthesia: lidocaine 1% Amount of anesthesic used (mL): 2 Technique used: direct manipulation Post-reduction neuro exam: intact Post-reduction vascular: intact Post Reduction X-Ray Obtained: Yes Post Reduction X-Ray Results: reduced Splint Applied: Yes Patient Tolerated Procedure: well and no complications MDM - Extremity Injury (Upper) MDM Narrative Medical decision making narrative: Patient presents the emergency department for dislocations of the right 3rd and 4th fingers. He is neurovascularly intact. Successfully reduced. Post reduction x-ray showing normal alignment. Will be given follow-up with Hand surgery. Patient placed in finger splints. He was given warnings to return to the ER Differential Diagnosis Differential diagnosis: Likely dislocation of finger and other (Finger fracture) Imaging Data My impression: Post reduction Right hand x-ray: Successful reductions Radiologist's impression: ITS Impressions Hand X-Ray 08/27/24 18:57 IMPRESSION: Fracture dislocation of the right third PIP joint. Dislocation of the right fourth PIP joint. Critical Care Time Critical Care Time Critical Care Time: No Discharge Plan Discharge Clinical Impression: Dislocated finger Qualifiers: Encounter type: initial encounter Qualified Code(s): S63.259A - Unspecified dislocation of unspecified finger, initial encounter Patient Disposition: Home Condition: Improved Instructions: Finger Dislocation (ED) Additional Instructions: Return to the ER if you experience fever, redness and swelling of your extremity, numbness or any other symptoms that are concerning to you Wear splints. Ice and elevate extremity. Pain medication as needed and directed. Follow up with hand surgery for further care. Patient Language: St Helenian Follow-up/Referrals: Rudy Costa MD [Physician] - Allen,Juan Hernandez MD [Primary Care Provider] -
--- OUTSIDE RECORDS SUMMARY | 2024-08-27 18:53 | XMS_ITS | Clinical Summary ---
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
--- OUTSIDE RECORDS SUMMARY | 2024-08-27 18:53 | XMS_ITS | Clinical Summary ---
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
== END 2024-08-27 19:30 | disposition home or self-care (01) ==
LOC: ANHED 18:50
PROVIDERS: Emergency Provider Physician Assistant; PCP Family Medicine
DX: S63.272A Dislocation of unspecified interphalangeal joint of right middle finger, initial encounter (principal); S63.274A Dislocation of unspecified interphalangeal joint of right ring finger, initial encounter; G40.909 Epilepsy, unspecified, not intractable, without status epilepticus; E78.5 Hyperlipidemia, unspecified; W01.0XXA Fall on same level from slipping, tripping and stumbling without subsequent striking against object, initial encounter
CPT/HCPCS: 26770; 73130; 99285

== ENCOUNTER 2024-09-10 14:46 | Outpatient (CLI) | payer MEDICARE, OTHER, SELFPAY ==
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
--- OUTSIDE RECORDS SUMMARY | 2024-09-10 14:55 | XMS_ITS | Clinical Summary ---
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
--- OUTSIDE RECORDS SUMMARY | 2024-09-10 14:56 | XMS_ITS | Encounter Summary ---
Author Organization [facility] Healthcare Address [address] [address] Care Team Providers Care Medical Staffing Coordinator Name Role Phone Juan Villa MD Primary Care Provider + Encounter Details Date Type Department Care Team (Late st Contact Info) Description 08/27/2024 Orders Only [facility] Health Information Management [address] [place] [id number] Scanning, Provider Social History Tobacco Use Types Packs/Day Years Used Date Smoking Tobacco: Never Cigarettes Smokeless Tobacco: Current Snuff Comments:Didn't start until I when through an [...] on file 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 Gender Identity Male 01/14/2019 8:10 PM CDT Sexual Orientation Straight 01/14/2019 8: 10 PM CDT documented as of this encounter Plan of Treatment Not on file documented as of this encounter Procedures Procedure Name Priority Date/Time Associated Diagnosis Comments SCAN - RADIOLOGY/IMAGING 08/27/2024 documented in this encounter Results * SCAN - RADIOLOGY/IMAGING (08/27/2024) Anatomical Region Laterality Modality Other us Provider Scanning Final Result documented in this encounter Visit Diagnoses Not on filedocumented in this encounter Care Teams Medical Staffing Coordinator Relationship Specialty Start Date End Date Juan Villa MD [address] [place] [address] PCP - General Family Medicine 02/15/19 documented as of this encounter
--- OUTSIDE RECORDS SUMMARY | 2024-09-10 14:56 | XMS_ITS | Referral Summary ---
Author Organization [facility] Address [address] [place] [address] Care Team Providers Care Supervisor Functional Testing Name Role Phone Juan Villa MD Primary Care Provider + Encounters Date Type Department Care Team Description 09/04/2024 3:00 PM CDT Office Visit [facility] Primary Care [facility] [address] [place] [address] Juan Villa MD DAREN (generalized anxiety disorder) (Primary Dx); Moderate episode of recurrent major depressive disorder (HCC); Cerebellar ataxia (HCC); Dyslipidemia; Benign prostatic hyperplasia with urinary hesitancy; Walker as ambulation aid 08/27/2024 Orders Only [facility] Health Information Management [address] [place] [id number] Scanning, Provider from Last 3 Months Allergies No known active allergies Medications ascorbic acid, vitamin C, 500 mg capsule 500 mg Ac tive calcium carbonate (CALTRATE 600 ORAL) Rx: Caltrate 600 1500 (600 Ca) MG Tablet Active dplqpbrx-nce-QT-lycopen- lutein 300-600-300 mcg tablet Rx: Centrum Silver [...] 03/18/2024 Assessment & Plan (04/12/2024 2:28 PM GAS ENGINE OPERATOR): - continue care per ortho Assessment & Plan (03/18/2024 4:07 PM GAS ENGINE OPERATOR): - xray reviewed by me - [...] 03/31/2023 Assessment & Plan (04/12/2024 2:28 PM GAS ENGINE OPERATOR): - stable - continue atorvastatin Assessment & Plan (10/11/2023 4:40 PM CDT): - stable - continue atorvastatin Assessment & Plan (03/31/2023 2:58 PM GAS ENGINE OPERATOR): - stable - continue current medication Rib pain 01/25/2022 Assessment & Plan (01/25/2022 3:23 PM CDT): - suspect just bruising to area but will check xray given pt sensation of popping in the rib area with certain movements - tylenol for pain Encounter for annual wellness exam in Medicare p atient 12/21/2021 Assessment & Plan (04/12/2024 2:27 PM GAS ENGINE OPERATOR): - Reviewed with the patient BMI, blood pressure, diet, exercise, and encouraged healthy lifestyle choices. - Screened for high risk behaviors, diet and exercise habits, and symptoms of depression. - check screening labs - encouraged regular exercise, healthy lifestyle, obtain/maintain healthy weight Assessment & Plan (03/31/2023 2:57 PM GAS ENGINE OPERATOR): - Reviewed with the patient BMI, [...] 04/17/2020 Assessment & Plan (04/12/2024 2:28 PM GAS ENGINE OPERATOR): - uncontrolled - offered urology referral but pt refused Assessment & Plan (10/11/2023 4:37 PM CDT): - poor control - continue flomax 1 tab daily - offered referral to urology but pt refused. Assessment & Plan (03/31/2023 2:56 PM GAS ENGINE OPERATOR): - uncontrolled - increase flomax to 0.8mg daily - if no improvement will ref to urology for eval Assessment & Plan (02/12/2021 4:53 PM CDT): - stable - continue current medication Assessment & Plan (04/17/2020 2:15 PM GAS ENGINE OPERATOR): - uncontrolled - start flomax - f/u in 3-6 mo for re-eval Osteoarthritis 04/17/2020 Assessment & Plan (03/31/2023 2:57 PM GAS ENGINE OPERATOR): - stable - continue current medication Assessment & Plan (04/17/2020 2:15 PM GAS ENGINE OPERATOR): - stable - continue current medication Depression 02/15/2019 Assessment & Plan (04/12/2024 2:27 PM GAS ENGINE OPERATOR): - stable but still sx - continue paxil 60 mg daily - offered to start trazodone or seroquel; pt has failed wellbutrin in the past - pt not interested in further medication. Pt also refusing change in med to alternate ssri. Assessment & Plan (03/31/2023 2:57 PM GAS ENGINE OPERATOR): - stable - continue current medication Assessment & Plan (04/17/2020 2:15 PM GAS ENGINE OPERATOR): - stable - continue current medication Assessment & Plan (10/21/2019 1:39 PM CDT): - stable - continue paxil 60mg daily DAREN (generalized anxiety disorder) 02/15/2019 Assessment & Plan (04/12/2024 2:27 PM GAS ENGINE OPERATOR): - stable - continue paxil as noted above. Assessment & Plan (10/11/2023 4:37 PM CDT): - uncontrolled - rec counseling - rec addition of seroquel but pt refusing - continue paxil. - f/u if sx worsen or wants to start medication. 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 Assessment & Plan (03/31/2023 2:56 PM GAS ENGINE OPERATOR): - stable - continue current medication [...] 04/16/2010 Assessment & Plan (04/12/2024 2:26 PM GAS ENGINE OPERATOR): - stable - continue current medication Assessment & Plan (03/31/2023 2:57 PM GAS ENGINE OPERATOR): - stable - continue current medication [...] medication. Assessment & Plan (03/31/2023 2:57 PM GAS ENGINE OPERATOR): - stable - continue current medication [...] 02/15/2019,01/26/2015,12/24/2014 Influenza, Unspecified 03/18/2024(Deferr ed: Patient Refused),01/13/2021 WISErg SARS-CoV-2 Monovalent Vaccination (12+ Yrs) PURPLE 01/13/2021,12/23/2020 [...] on file Legal Sex Male 3:22 AM GAS ENGINE OPERATOR Gender Identity Male 01/14/2019 8:10 PM [...] 09/04/2024 3:04 PM CDT Plan of Treatment Not on file Medical Devices Implanted Type Area Relocation Services Specialist Device Identifier Shelf Expiration Date Model / Serial / Lot Right Wrist Right: Wrist Knee Replacement Right: Knee 1.1 K-Wire Implanted:Qty: 2 on 03/26/2024 by Fawad Cook MD at [facility] Left: Metacarpal AR[employer] [id number] / / Explanted Type Area Relocation Services Specialist Device Identifier Shelf Expiration Date Model / Serial / Lot [employer] Plate Bone Rotation Correction 5 Hole Small Bone 1.6mm Ti [id number] - [id number] Explanted:Qty: 1 on 03/26/2024 by Fawad Cook MD at [facility] Plate Left: Metacarpal [employer] [id number] / / [employer] Screw Bone Cortical Threaded 1.6x8mm Ti [id number] - [id number] Explanted:Qty: 1 on 03/26/2024 by Fawad Cook MD at [facility] Screw Left: Metacarpal [employer] [id number] / / [employer] Screw Bone Threaded Locking 1.6x12mm Ti [id number] - [id number] Explanted:Qty: 1 on 03/26/2024 by Fawad Cook MD at [facility] Screw Left: Metacarpal [employer] [id number] / / Procedures Procedure Name Priority Date/Time Associated Diagnosis Comments SCAN - RADIOLOGY/IMAGING 08/27/2024 PSA SCREEN Routine 03/17/2023 1:51 PM GAS ENGINE OPERATOR Encounter for Medicare annual wellness exam COLONOSCOPY Routine 03/20/2015 from Last 3 Months or Most Recently Relevant to Health Maintenance Results * SCAN - RADIOLOGY/IMAGING (08/27/2024) Anatomical Region Laterality Modality Other us Provider Scanning Final Result * PSA screen (03/17/2023 1:51 PM GAS ENGINE OPERATOR) PSA-Total 3.17 <=5.40 ng/mL HEIDI LEE Comment: Interpretive Data AGE SEX REFERENCE INTERVAL [...] data last revised 21. Testing performed by: [facility], [address] [place] [address]., [id number] Blood 03/17/2023 1:51 PM GAS ENGINE OPERATOR 03/17/2023 5:03 PM GAS ENGINE OPERATOR Juan Villa MD LAB BLOOD ORDERABLES Fin al Result HEIDI LEE [address] Department [place] [address] * Colonoscopy (03/20/2015) Anatomical Region Laterality Modality Other 03/20/2015 us Historical Provider ENDOSCOPY PROCEDURES Deneen l Result from Last 3 Months or Most Recently Relevant to Health Maintenance Insurance MEDICARE [employer] [place] [address] MEDICARE FOR LIFE Advance Directives For more information, please contact: [phone] * LIMITED - No CPR (Latest Code [...] 7:23 PM 12/01/2021 11:19 PM Care Teams Supervisor Functional Testing Relationship Specialty Start Date End Date Juan Villa MD [address] [place], [place] [phone] PCP - General Family Medicine 02/15/19
--- OUTSIDE RECORDS SUMMARY | 2024-09-10 14:56 | XMS_ITS | Clinical Summary ---
Author Organization [facility] Address [address] [place] [address] Care Team Providers Care Check Cashier Name Role Phone Walter Craven MD Primary Care Provider Social History Tobacco Use Types Packs/Day [...] Documents on File Type Date Recorded Patient Brine Maker Expl anation Advance Directives and Living Will 10/28/2016 SADVANCE DIRECTIVES Care Teams Check Cashier Relationship Specialty Start Date End Date Walter Craven MD [address] [place] [address] PCP - General 10/28/15
== END 2024-09-10 14:47 | disposition home or self-care (01) ==
PROVIDERS: PCP Family Medicine; Visit Provider Physician Assistant Surgical
DX: S63.280A Dislocation of proximal interphalangeal joint of right index finger, initial encounter (principal); S63.284A Dislocation of proximal interphalangeal joint of right ring finger, initial encounter; X58.XXXA Exposure to other specified factors, initial encounter
CPT/HCPCS: 73130

== ENCOUNTER 2024-09-12 08:55 | Day surgery (SDC) | payer MEDICARE, OTHER, SELFPAY ==
--- NOTE | ~2024-09-12 | XR_ITS ---
EXAMINATION: XR surgery orthopedic DATE: 09/12/2024 12:13 INDICATION: Closed reduction and pinning of dislocations of the right third and fourth proximal inter phalangeal joints. TECHNIQUE: 4 fluoroscopic images of the right hand were obtained during procedure performed by Dr. Ab barrios. Radiologist was not present for the imaging or procedure. The amount of fluoroscopy time us ed during this procedure was 0.5 minutes. Total DAP was 1.505 cGym^2. COMPARISON: Hand radiographs dated 09/10/2024 FINDINGS: Initial images redemonstrate the dorsally dislocated third and fourth proximal interphalangeal joints . This is subsequently reduced to normal alignment and fixed with the proximal interphalangeal joints in flexion by percutaneous pins extending across the heads of the proximal phalanges into the base o f the middle phalanges of the third and fourth digits. IMPRESSION: 1. Near-anatomic alignment post closed reduction percutaneous pinning prior dorsal dislocation of the right third and fourth proximal interphalangeal joints. See procedure note for further detail. Reviewed, dictated and finalized at location A. IMPRESSION: 1. Near-anatomic alignment post closed reduction percutaneous pinning prior kendra pawel dislocation of the right third and fourth proximal interphalangeal joints. See procedure note for further detail.
--- NOTE | 2024-09-12 07:03 | WPDHPUPDATE1 ---
History and Physical Update Update Date/Time: 09/12/24 07:03 Patient seen and examined in pre-operative holding area. No interval change in medical history or symptoms. Patient recalls previous discussion of benefits and alternatives to procedure. Continues to desire to proceed with closed possible open reduction and pin fixation right middle and ring finger pipjoint dislocation. Reviewed procedure, post-op expectations and risks including but not limited to bleeding, infection, injury to tendon/nerve/vessel, decreased hand function, stiffness, RSD, no change or worsening of symptoms, stiffness, arthritis, recurrence. I discussed the possible use of assistants and their participation in the case. Patient stated understanding and signed the consent form wishing to proceed.
--- NOTE | 2024-09-12 07:04 | W.PM.PROC2 ---
Procedure Note - Detailed Date of Procedure 09/12/24 Pre-op Diagnosis Dislocated Right Middle and Ring Finger pipjoint Post-op Diagnosis Same Procedure Performed closed reduction and pinning right middle and ring finger pipjoint dislocation Surgeon Rudy Costa MD Virtualization Consultant caro ventura pa-c Anesthesia MAC Description of Procedure INFORMED CONSENT: The patient was seen and examined and marked in the pre-op area.? The patient signed the consent form. PROCEDURE IN DETAIL:The patient taken back to OR on the stretcher in supine position. Time out performed with anesthesia, surgeon and staff agreeing on patient's name site and surgery to be performed SCDs were placed on the lower extremities and inflated. A tourniquet was placed on {right} upper extremity and antibiotics given IV After anesthesia administered sedation I injected {10}cc 1%lido and 0.5% marcaine plain for digital blocks in the palm The?{right upper extremity}?was prepped and draped in sterile fashion the??{right upper extremity} was? exsanguinated with Esmarch bandage and tourniquet inflated to 250mmHg The mini C-arm was draped and brought into the field. I turned my attention 1st to the right middle finger were fluoroscopy verified the PIP joint dislocation. Closed reduction maneuvers resulted in reduction of the joint with good congruency. This was unstable reduction and I proceeded with placing a 0.062 K-wire in anterograde fashion across the joint to secure it. Next I took my attention to the ring finger where the PIP joint dislocation was verified and then proceeded with closed reduction maneuvers to reduce the joint. Again this was an unstable reduction and I proceeded with placing a 0.062 K-wire in anterograde fashion across the joint. Multiple views of fluoroscopy verified K-wire placement. The pins were trimmed appropriately. betadine soaked alcohol swabs placed around pin sites followed by 4x4, elaine, and a dorsal extension blocking splint was placed and secured with an alban bandage after the tourniquet was let down noting the hand was warm and well perfused. The patient was then awaken from anesthesia and transferred to the recovery room in stable condition.? Complications - none EBL- 0cc Disposition - home in stable condition caro ventura pa-c was essential for positiioning, manipulation, fluoro utilization, and dressing placement [facility] Billing Surgery - Charge Forward: Surgery Billing ([id number] same for caro adding )
--- OUTSIDE RECORDS SUMMARY | 2024-09-12 10:10 | XMS_ITS | Clinical Summary ---
Author Organization [facility] Address [address] [facility] Attn: Epic Prelude ADT [place] [address] Care Team Providers Care Printing Agent Name Role Phone Unavailable Primary Care Provider Unavailabl e Social History Tobacco Use Types Packs/Day Years Used Date Smoking Tobacco: Never Assessed Sex and Gender Information Value Date Recorded Sex Assigned at Not on file Legal Sex Male 3:57 AM DATA ACQUISITION TECHNICIAN Gender Identity Not on file Sexual Orientation [...]
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
--- OUTSIDE RECORDS SUMMARY | 2024-09-12 10:11 | XMS_ITS | Clinical Summary ---
Author Organization [facility] Address [address] [place] [address] Care Team Providers Care Commodity Industry Analyst Name Role Phone Juan Villa MD Primary Care Provider + Allergies No known active allergies Medications ascorbic acid, vitamin C, 500 mg capsule 500 mg Ac tive calcium carbonate (CALTRATE 600 ORAL) Rx: Caltrate 600 1500 (600 Ca) MG Tablet Active drpxtrqs-ore-KP-lycopen- lutein 300-600-300 mcg tablet Rx: Centrum Silver [...] 03/18/2024 Assessment & Plan (04/12/2024 2:28 PM INDUSTRIAL SEWER): - continue care per ortho Assessment & Plan (03/18/2024 4:07 PM INDUSTRIAL SEWER): - xray reviewed by me - displaced [...] 03/31/2023 Assessment & Plan (04/12/2024 2:28 PM INDUSTRIAL SEWER): - stable - continue atorvastatin Assessment & Plan (10/11/2023 4:40 PM CDT): - stable - continue atorvastatin Assessment & Plan (03/31/2023 2:58 PM INDUSTRIAL SEWER): - stable - continue current medication Rib pain 01/25/2022 Assessment & Plan (01/25/2022 3:23 PM CDT): - suspect just bruising to area but will check xray given pt sensation of popping in the rib area with certain movements - tylenol for pain Encounter for annual wellness exam in Medicare p atient 12/21/2021 Assessment & Plan (04/12/2024 2:27 PM INDUSTRIAL SEWER): - Reviewed with the patient BMI, blood pressure, diet, exercise, and encouraged healthy lifestyle choices. - Screened for high risk behaviors, diet and exercise habits, and symptoms of depression. - check screening labs - encouraged regular exercise, healthy lifestyle, obtain/maintain healthy weight Assessment & Plan (03/31/2023 2:57 PM INDUSTRIAL SEWER): - Reviewed with the patient BMI, blood [...] 04/17/2020 Assessment & Plan (04/12/2024 2:28 PM INDUSTRIAL SEWER): - uncontrolled - offered urology referral but pt refused Assessment & Plan (10/11/2023 4:37 PM CDT): - poor control - continue flomax 1 tab daily - offered referral to urology but pt refused. Assessment & Plan (03/31/2023 2:56 PM INDUSTRIAL SEWER): - uncontrolled - increase flomax to 0.8mg daily - if no improvement will ref to urology for eval Assessment & Plan (02/12/2021 4:53 PM CDT): - stable - continue current medication Assessment & Plan (04/17/2020 2:15 PM INDUSTRIAL SEWER): - uncontrolled - start flomax - f/u in 3-6 mo for re-eval Osteoarthritis 04/17/2020 Assessment & Plan (03/31/2023 2:57 PM INDUSTRIAL SEWER): - stable - continue current medication Assessment & Plan (04/17/2020 2:15 PM INDUSTRIAL SEWER): - stable - continue current medication Depression 02/15/2019 Assessment & Plan (04/12/2024 2:27 PM INDUSTRIAL SEWER): - stable but still sx - continue paxil 60 mg daily - offered to start trazodone or seroquel; pt has failed wellbutrin in the past - pt not interested in further medication. Pt also refusing change in med to alternate ssri. Assessment & Plan (03/31/2023 2:57 PM INDUSTRIAL SEWER): - stable - continue current medication Assessment & Plan (04/17/2020 2:15 PM INDUSTRIAL SEWER): - stable - continue current medication Assessment & Plan (10/21/2019 1:39 PM CDT): - stable - continue paxil 60mg daily DAREN (generalized anxiety disorder) 02/15/2019 Assessment & Plan (04/12/2024 2:27 PM INDUSTRIAL SEWER): - stable - continue paxil as noted above. Assessment & Plan (10/11/2023 4:37 PM CDT): - uncontrolled - rec counseling - rec addition of seroquel but pt refusing - continue paxil. - f/u if sx worsen or wants to start medication. 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 Assessment & Plan (03/31/2023 2:56 PM INDUSTRIAL SEWER): - stable - continue current medication per [...] 04/16/2010 Assessment & Plan (04/12/2024 2:26 PM INDUSTRIAL SEWER): - stable - continue current medication Assessment & Plan (03/31/2023 2:57 PM INDUSTRIAL SEWER): - stable - continue current medication Resolved [...] medication. Assessment & Plan (03/31/2023 2:57 PM INDUSTRIAL SEWER): - stable - continue current medication - [...] Description 09/04/2024 3:00 PM CDT Office Visit [facility] Medical Group Primary Care [address] [place] [phone] Juan Villa MD DAREN (generalized anxiety disorder) (Primary Dx); Moderate episode of recurrent major depressive disorder (HCC); Cerebellar ataxia (HCC); Dyslipidemia; Benign prostatic hyperplasia with urinary hesitancy; Walker as ambulation aid 08/27/2024 Orders Only [facility] Health Information Management [address] [place] [address] Scanning, Provider from Last 3 Months Immunizations Immunization Administration Dates Next Due Influenza, Quadrivalent, Hig h Dose, Preservative Free, Intrr 03/31/2023,01/25/2022 Influenza, Quadrivalent, Spl it, Preservative Free, Intramuscular 02/15/2019,01/26/2015,12/24/2014 Influenza, Unspecified 03/18/2024(Deferr ed: Patient Refused),01/13/2021 [employer] SARS-CoV-2 Monovalent Vaccination (12+ Yrs) PURPLE 01/13/2021,12/23/2020 [...] Logan Gillis Drug abuse Daughter 2 July Jhony Kidney disease Daughter 3 Varsha Alejandro Miscarriages / Stillbirths Daughter 4 Shawna Hankins Alcohol abuse Father Markell Gillis Cancer Father Markell Alejandro Depression Father Markellarturo Gilils Alcohol abuse Father's Brother 1 Avon Alejandro Depression Father's Brother 1 Avon Alejandro Alcohol abuse Father's Brother 2 Ari Alejandro Cancer Father's Brother 2 Ari Alejandro Depression Father's Brother 2 Ari Alejandro Alcohol abuse Father's Brother 3 Cristobal Alejandro Alzheimer's disease Father's Sister Luigi Harrison Hearing loss Mother Wili Gillis Heart disease Paternal Grandfather Melecio Gillis Relation Name Status Comments Brother 1 Brother 2 Logan Gillis Daughter 1 Alive Daughter 2 July Ellabell Daughter 3 Varsha Gillis Daughter 4 Shawna Hankins Father Markell Gillis (Age 80) Father's Brother 1 Avon Alejandro Father's Brother 2 Ari Alejandro Father's [...] on file Legal Sex Male 3:22 AM INDUSTRIAL SEWER Gender Identity Male 01/14/2019 8:10 PM CDT [...] 03/31/2023, 11/30 Medical Devices Implanted Type Area Cost And Risk Analysis Manager Device Identifier Shelf Expiration Date Model / Serial / Lot Right Wrist Right: Wrist Knee Replacement Right: Knee 1.1 K-Wire Implanted:Qty: 2 on 03/26/2024 by Fawad Cook MD at [facility] Left: Metacarpal [employer] AR-[id number] 3 / / Explanted Type Area Cost And Risk Analysis Manager Device Identifier Shelf Expiration Date Model / Serial / Lot [employer] Plate Bone Rotation Correction 5 Hole Small Bone 1.6mm Ti [id number] - [id number] Explanted:Qty: 1 on 03/26/2024 by Fawad Cook MD at [facility] Plate Left: Metacarpal [employer] [id number] 30 / / [employer] Screw Bone Cortical Threaded 1.6x8mm Ti Ar-[id number] - [id number] Explanted:Qty: 1 on 03/26/2024 by Fawad Cook MD at [facility] Screw Left: Metacarpal [employer] AR-[id number] 8 / / [employer] Screw Bone Threaded Locking 1.6x12mm Ti [id number] - [id number] Explanted:Qty: 1 on 03/26/2024 by Fawad Cook MD at [facility] Screw Left: Metacarpal [employer] [id number]- 12 / / Procedures Procedure Name Priority Date/Time Associated Diagnosis Comments SCAN - RADIOLOGY/IMAGING 08/27/2024 PSA SCREEN Routine 03/17/2023 1:51 PM INDUSTRIAL SEWER Encounter for Medicare annual wellness exam COLONOSCOPY Routine 03/20/2015 from Last 3 Months or Most Recently Relevant to Health Maintenance Results * SCAN - RADIOLOGY/IMAGING (08/27/2024) Anatomical Region Laterality Modality Other us Provider Scanning Final Result * PSA screen (03/17/2023 1:51 PM INDUSTRIAL SEWER) PSA-Total 3.17 <=5.40 ng/mL HEIDI Comment: Interpretive [...] revised 21. Testing performed by: [facility], [address] [place] [address]., [id number] Blood 03/17/2023 1:51 PM INDUSTRIAL SEWER 03/17/2023 5:03 PM INDUSTRIAL SEWER Juan Villa MD LAB BLOOD ORDERABLES Fin al Result HEIDI [address] [facility] Department [place] [address] * Colonoscopy (03/20/2015) Anatomical Region Laterality Modality Other 03/20/2015 Holger Provider ENDOSCOPY PROCEDURES Deneen l Result from Last 3 Months or Most Recently Relevant to Health Maintenance Insurance MEDICARE [email or web address] MEDICARE FOR LIFE MEDICARE FOR LIFE Advance Directives For more information, please contact: [phone] * LIMITED - No CPR (Latest Code [...] 7:23 PM 12/01/2021 11:19 PM Care Teams Commodity Industry Analyst Relationship Specialty Start Date End Date Juan Villa MD [address] [place] [id number] PCP - General Family Medicine 02/15/19
--- OUTSIDE RECORDS SUMMARY | 2024-09-12 10:11 | XMS_ITS | Clinical Summary ---
Author Organization [facility] Address [address] [place] [address] Care Team Providers Care Finishing And Shipping Supervisor Name Role Phone Walter Craven MD Primary [...] Documents on File Type Date Recorded Patient Push Bench Operator Helper Expl anation Advance Directives and Living Will 10/28/2016 [employer] DIRECTIVES Care Teams Finishing And Shipping Supervisor Relationship Specialty Start Date End Date Walter Craven MD [address] [place] [address] PCP - General 10/28/15
--- OUTSIDE RECORDS SUMMARY | 2024-09-12 10:11 | XMS_ITS | Referral Summary ---
Author Organization [facility] Address [address] [place] [address] Care Team Providers Care Public Utilities Sales Representative Name Role Phone Juan Villa MD Primary Care Provider + Encounters Date Type Department Care Team Description 09/04/2024 3:00 PM CDT Office Visit [facility] Primary Care [facility] [address] [place] [address] Juan Villa MD DAREN (generalized anxiety disorder) (Primary Dx); Moderate episode of recurrent major depressive disorder (HCC); Cerebellar ataxia (HCC); Dyslipidemia; Benign prostatic hyperplasia with urinary hesitancy; Walker as ambulation aid 08/27/2024 Orders Only [facility] Health Information Management [address] [place] [id number] Scanning, Provider from Last 3 Months Allergies No known active allergies Medications ascorbic acid, vitamin C, 500 mg capsule 500 mg Ac tive calcium carbonate (CALTRATE 600 ORAL) Rx: Caltrate 600 1500 (600 Ca) MG Tablet Active atyksrsw-oxn-TS-lycopen- lutein 300-600-300 mcg tablet Rx: Centrum Silver [...] 03/18/2024 Assessment & Plan (04/12/2024 2:28 PM C4 PLANNER): - continue care per ortho Assessment & Plan (03/18/2024 4:07 PM C4 PLANNER): - xray reviewed by me - displaced [...] 03/31/2023 Assessment & Plan (04/12/2024 2:28 PM C4 PLANNER): - stable - continue atorvastatin Assessment & Plan (10/11/2023 4:40 PM CDT): - stable - continue atorvastatin Assessment & Plan (03/31/2023 2:58 PM C4 PLANNER): - stable - continue current medication Rib pain 01/25/2022 Assessment & Plan (01/25/2022 3:23 PM CDT): - suspect just bruising to area but will check xray given pt sensation of popping in the rib area with certain movements - tylenol for pain Encounter for annual wellness exam in Medicare p atient 12/21/2021 Assessment & Plan (04/12/2024 2:27 PM C4 PLANNER): - Reviewed with the patient BMI, blood pressure, diet, exercise, and encouraged healthy lifestyle choices. - Screened for high risk behaviors, diet and exercise habits, and symptoms of depression. - check screening labs - encouraged regular exercise, healthy lifestyle, obtain/maintain healthy weight Assessment & Plan (03/31/2023 2:57 PM C4 PLANNER): - Reviewed with the patient BMI, blood [...] 04/17/2020 Assessment & Plan (04/12/2024 2:28 PM C4 PLANNER): - uncontrolled - offered urology referral but pt refused Assessment & Plan (10/11/2023 4:37 PM CDT): - poor control - continue flomax 1 tab daily - offered referral to urology but pt refused. Assessment & Plan (03/31/2023 2:56 PM C4 PLANNER): - uncontrolled - increase flomax to 0.8mg daily - if no improvement will ref to urology for eval Assessment & Plan (02/12/2021 4:53 PM CDT): - stable - continue current medication Assessment & Plan (04/17/2020 2:15 PM C4 PLANNER): - uncontrolled - start flomax - f/u in 3-6 mo for re-eval Osteoarthritis 04/17/2020 Assessment & Plan (03/31/2023 2:57 PM C4 PLANNER): - stable - continue current medication Assessment & Plan (04/17/2020 2:15 PM C4 PLANNER): - stable - continue current medication Depression 02/15/2019 Assessment & Plan (04/12/2024 2:27 PM C4 PLANNER): - stable but still sx - continue paxil 60 mg daily - offered to start trazodone or seroquel; pt has failed wellbutrin in the past - pt not interested in further medication. Pt also refusing change in med to alternate ssri. Assessment & Plan (03/31/2023 2:57 PM C4 PLANNER): - stable - continue current medication Assessment & Plan (04/17/2020 2:15 PM C4 PLANNER): - stable - continue current medication Assessment & Plan (10/21/2019 1:39 PM CDT): - stable - continue paxil 60mg daily DAREN (generalized anxiety disorder) 02/15/2019 Assessment & Plan (04/12/2024 2:27 PM C4 PLANNER): - stable - continue paxil as noted above. Assessment & Plan (10/11/2023 4:37 PM CDT): - uncontrolled - rec counseling - rec addition of seroquel but pt refusing - continue paxil. - f/u if sx worsen or wants to start medication. 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 Assessment & Plan (03/31/2023 2:56 PM C4 PLANNER): - stable - continue current medication per [...] 04/16/2010 Assessment & Plan (04/12/2024 2:26 PM C4 PLANNER): - stable - continue current medication Assessment & Plan (03/31/2023 2:57 PM C4 PLANNER): - stable - continue current medication Resolved [...] medication. Assessment & Plan (03/31/2023 2:57 PM C4 PLANNER): - stable - continue current medication - [...] 02/15/2019,01/26/2015,12/24/2014 Influenza, Unspecified 03/18/2024(Deferr ed: Patient Refused),01/13/2021 [employer] SARS-CoV-2 Monovalent Vaccination (12+ Yrs) PURPLE 01/13/2021,12/23/2020 [...] on file Legal Sex Male 3:22 AM C4 PLANNER Gender Identity Male 01/14/2019 8:10 PM CDT [...] on file Medical Devices Implanted Type Area Principal Administrative Clerk Device Identifier Shelf Expiration Date Model / Serial / Lot Right Wrist Right: Wrist Knee Replacement Right: Knee 1.1 K-Wire Implanted:Qty: 2 on 03/26/2024 by Fawad Cook MD at [facility] Left: Metacarpal [employer] [id number] 3 / / Explanted Type Area Principal Administrative Clerk Device Identifier Shelf Expiration Date Model / Serial / Lot [employer] Plate Bone Rotation Correction 5 Hole Small Bone 1.6mm Ti [id number] - [id number] Explanted:Qty: 1 on 03/26/2024 by Fawad Cook MD at [facility] Plate Left: Metacarpal [employer] [id number]- 30 / / [employer] Screw Bone Cortical Threaded 1.6x8mm Ti [id number]-[id number] - [id number] Explanted:Qty: 1 on 03/26/2024 by Fawad Cook MD at [facility] Screw Left: Metacarpal [employer] AR-[id number] 8 / / [employer] Screw Bone Threaded Locking 1.6x12mm Ti [id number] - [id number] Explanted:Qty: 1 on 03/26/2024 by Fawad Cook MD at [facility] Screw Left: Metacarpal [employer] [id number]- 12 / / Procedures Procedure Name Priority Date/Time Associated Diagnosis Comments SCAN - RADIOLOGY/IMAGING 08/27/2024 PSA SCREEN Routine 03/17/2023 1:51 PM C4 PLANNER Encounter for Medicare annual wellness exam COLONOSCOPY Routine 03/20/2015 from Last 3 Months or Most Recently Relevant to Health Maintenance Results * SCAN - RADIOLOGY/IMAGING (08/27/2024) Anatomical Region Laterality Modality Other us Provider Scanning Final Result * PSA screen (03/17/2023 1:51 PM C4 PLANNER) PSA-Total 3.17 <=5.40 ng/mL HEIDI LEE Comment: [...] last revised 21. Testing performed by: [facility], [address] [place] [address]., [address] Blood 03/17/2023 1:51 PM C4 PLANNER 03/17/2023 5:03 PM C4 PLANNER Juan Villa MD LAB BLOOD ORDERABLES Fin al Result HEIDI LEE [address] Department [place] [address] * Colonoscopy (03/20/2015) Anatomical Region Laterality Modality Other 03/20/2015 us Historical Provider ENDOSCOPY PROCEDURES Deneen l Result from Last 3 Months or Most Recently Relevant to Health Maintenance Insurance MEDICARE [employer] [place] [id number] MEDICARE FOR LIFE Advance Directives For more information, please contact: [phone] * LIMITED - No CPR (Latest Code [...] 7:23 PM 12/01/2021 11:19 PM Care Teams Public Utilities Sales Representative Relationship Specialty Start Date End Date Juan Villa MD [address] [place], [place] [phone] PCP - General Family Medicine 02/15/19
--- OUTSIDE RECORDS SUMMARY | 2024-09-12 10:11 | XMS_ITS | Encounter Summary ---
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
--- OUTSIDE RECORDS SUMMARY | 2024-09-12 10:11 | XMS_ITS | Continuity of Care Document ---
Author Name [facility] Organization [facility] Care Team Providers Care Horologist Name Role Phone [facility] Unavailable Unavailable Problems Combined list of problems from Department of Defense and Veterans Affairs facilities. It does not include entries that were removed or entered in error. Problem Status Onset Date Problem Type Date of Resolution Comments Source CEREBRAL ATAXIA Active Condition [facility] visit for: issue repeat prescription for medication Inactive Condition [facility] CERUMEN IMPACTION Inactive Condition DoD Medications Combined list of outpatient medications from Department of Defense and Veterans Affairs facilities.Medications provided include 1) outpatient medications from the last 15 months, and 2) patient-reported medications. Medication Details Route Status Patient Instructions Prescription Expires Prescription Number Last Dispense Date Ordering Provider Order Date Order Qty Source amoxicillin 875 mg oral tablet 0 total refill(s ) Ordered 2019 No Facilit y Access clonazePAM 1 mg oral tablet clonazeP AM 1 mg oral tablet Start Date: 10/29/19 Status: Ordered Repeat number: 1 Ordered 2019 No Facilit y Access clonazePAM 1 mg oral tablet clonazeP AM 1 mg oral tablet Start Date: 05/02/19 Status: Ordered Repeat number: 1 Ordered 2019 No Facilit y Access clonazePAM 1 mg oral tablet clonazeP AM 1 mg oral tablet Start Date: 07/31/19 Status: Ordered Repeat number: 1 Ordered 2019 No Facilit y Access clonazePAM 1 mg oral tablet clonazeP AM 1 mg oral tablet Start Date: 10/25/18 Status: Ordered Repeat number: 1 Ordered 2019 No Facilit y Access clonazePAM 1 mg oral tablet clonazeP AM 1 mg oral tablet Start Date: 02/11/19 Status: Ordered Repeat number: 1 Ordered 2019 No Facilit y Access HYDROCODONE -ACETAMINOP HEN (HYDROCODON E/ACETAMINO PHEN), 5MG-325MG, TABLET, ORAL, MALLINCKROD T PH, 50 HYDROCOD ONE-ACET AMINOPHE N (HYDROCO DONE/CATALINO TAMINOPH EN), 5MG-325M G, TABLET, ORAL, MALLINCK RODT PH, 50 Start Date: 07/31/19 Status: Ordered Repeat number: 1 Ordered 2019 No Facilit y Access ibuprofen 800 mg oral tablet ibuprofe n 800 mg oral tablet Start Date: 07/31/19 Status: Ordered Repeat number: 1 Ordered 2019 No Facilit y Access KLONOPIN (clonazepam ), 1 MG, TABLET, ORAL, [employer], 100 ea. BOTTLE Active [id number] 2023 135 Pharmac y Data Transac tion Service Facilit y LEVETIRACET AM (LEVETIRACE CONTI), 500 MG, TAB ER 24H, ORAL, [employer] 60 ea. BOTTLE Active [id number] 2023 360 Pharmac y Data Transac tion Service Facilit y levETIRAcet am 500 mg oral tablet, extended release levETIRA cetam 500 mg oral tablet, extended release Start Date: 10/29/19 Status: Ordered Repeat number: 1 Ordered 2019 No Facilit y Access levETIRAcet am 500 mg oral tablet, extended release levETIRA cetam 500 mg oral tablet, extended release Start Date: 04/26/19 Status: Ordered Repeat number: 1 Ordered 2019 No Facilit y Access levETIRAcet am 500 mg oral tablet, extended release levETIRA cetam 500 mg oral tablet, extended release Start Date: 05/03/19 Status: Ordered Repeat number: 1 Ordered 2019 No Facilit y Access levETIRAcet am 500 mg oral tablet, extended release levETIRA cetam 500 mg oral tablet, extended release Start Date: 08/05/19 Status: Ordered Repeat number: 1 Ordered 2019 No Facilit y Access meloxicam 15 mg oral tablet meloxica m 15 mg oral tablet Start Date: 04/15/19 Status: Ordered Repeat number: 1 Ordered 2019 No Facilit y Access meloxicam 15 mg oral tablet meloxica m 15 mg oral tablet Start Date: 07/10/19 Status: Ordered Repeat number: 1 Ordered 2019 No Facilit y Access meloxicam 15 mg oral tablet meloxica m 15 mg oral tablet Start Date: 02/24/19 Status: Ordered Repeat number: 1 Ordered 2019 No Facilit y Access meloxicam 15 mg oral tablet meloxica m 15 mg oral tablet Start Date: 09/20/19 Status: Ordered Repeat number: 1 Ordered 2019 No Facilit y Access meloxicam 15 mg oral tablet meloxica m 15 mg oral tablet Start Date: 12/18/19 Status: Ordered Repeat number: 1 Ordered 2019 No Facilit y Access PARoxetine 20 mg oral tablet PARoxeti ne 20 mg oral tablet Start Date: 04/26/19 Status: Ordered Repeat number: 1 Ordered 2019 No Facilit y Access PARoxetine 20 mg oral tablet PARoxeti ne 20 mg oral tablet Start Date: 02/24/19 Status: Ordered Repeat number: 1 Ordered 2019 No Facilit y Access PARoxetine 20 mg oral tablet PARoxeti ne 20 mg oral tablet Start Date: 07/10/19 Status: Ordered Repeat number: 1 Ordered 2019 No Facilit y Access PARoxetine 20 mg oral tablet PARoxeti ne 20 mg oral tablet Start Date: 10/22/19 Status: Ordered Repeat number: 1 Ordered 2019 No Facilit y Access PARoxetine 20 mg oral tablet PARoxeti ne 20 mg oral tablet Start Date: 01/20/20 Status: Ordered Repeat number: 1 Ordered 2019 No Facilit y Access PARoxetine 20 mg oral tablet PARoxeti ne 20 mg oral tablet Start Date: 10/07/19 Status: Ordered Repeat number: 1 Ordered 2019 No Facilit y Access Allergies, Adverse Reactions, Alerts Combined list of allergies from Department of Defense and Veterans Affairs facilities. It does not include entries that were removed or entered in error. Substance Category Reaction Severity Reaction type Status Date Reported Comments Source No Known Allergies Drug allergy (disorder) active 06/02/2006 [facility] Immunizations Combined list of available immunizations from the Department of Defense and Veterans Affairs facilities. Immunization Series Date Given Administered By Site Reaction Lot Number CVX Code Drug Cullet Washer Status Comments Source COVID-19, mRNA, LNP-S, PF, 30 mcg/0.3 mL dose 2020 [employer] (PFR) Not Given COVID-19, mRNA, LNP-S, PF, 30 mcg/0.3 mL dose DoD zoster vaccine live 2014 zAdrien membreno Arm [id number] [employer] complet ed zoster vaccine live 08/27/14 Given Ambulat ory Pharmac y zoster vaccine, live 1 2014 Unknown, Provider [id number] [employer]ck (MSD) complet ed zoster vaccine, live DoD Encounters Combined list of: 1) Encounters from Department of Veterans Affairs facilities going backup to the last 18 months, not all VA inpatient encounters are included; 2) Encounters from the Department of Defense facilities going backup to 280 months. Location Location Details Encounter Type Encounter Number Reason For Visit Attending Provider ADM Date DC Date Status Disposition Source [address] [place] [address])([facility] Practice Non-[facility]ME [facility]) OUTPATIENT [id number] left ear clogged JUAN HANSEN 12/06 Released w/o Limitations [address] [place] [address])(F amily Practic e Non-GME FHI1) [address] [place] [address])([facility] Non-[facility]ME [facility]) TELE CONSULT [id number] Refill of ANGELIQUE Perea 02/[address] [place] [address])(F amily Practic e Non-GME FHI1) [address] [place] [address])([facility] Non-GME [facility]) TELE CONSULT [id number] MED REFILL- -SERA NICHOLS 09/[address] [place] [address])(F amily Practic e Non-GME FHI1) [address] [place] [address])([facility] Non-[facility]ME [facility]) TELE CONSULT [id number] SERA Sommers 09/[address] [place] [address])(F amily Practic e Non-GME FHI1) [address] [place] [address])([facility] Non-GME FHI[facility]) TELE CONSULT [id number] med refill EDGAR STOKES 03/[address] [place] [address])(F amily Practic e Non-GME FHI1) [address] [place] [address])([facility]am [facility] Non-GME FHI1) TELE CONSULT [id number] New Referra l for Neurolo gy EDGAR STOKES 06/[address] [place], [place] [address]B ([facility] [place] [facility]F amily Practic e Non-GME FHI1) Procedures Combined list of: 1) Procedures from Department of Veterans Affairs facilities going back up to thelast 18 months, not all [place] non-surgical procedures are included; 2) All procedures from the Department of Defense facilities. Procedure Procedure Type Code Date Perfomer Comments Sourc e No data available for this section Ambulato ry Pharmacy Cerumen Removal 5 JUAN HANSEN S [facility] ALCOHOL REHABILITATION 4 [facility] OCCUPATIONAL THERAPY 99 4 [facility] REMOVAL IMPACTED CERUMEN REQUIRING INSTRUMENTATION, UNILATERAL 5 DoD DIGITAL RECTAL EXAMINATION, ANNUAL 3 [facility] Social History Combined list of available smoking, tobacco, and other social history from Department of Defense and Veterans Affairs facilities. Social History Type Response Date Comment Sourc e Sex Representation Male (finding) 01/22/2020 Un known Organization Sexual Orientation Ambula tory Pharmacy Gender identity Ambulator y Pharmacy This section is an empty social history section. [facility] Assessment and Plan Combined list of future care activities from Department of Defense and Veterans Affairs facilities (e.g., assessment and plan notes, appointments, orders, and referrals). Additional future care activities may be listed in the Plan of Care section. Result Assessment and Plan Date Source Assessment and Plan No data available for this section 09/12/2024 Ambulatory Pharmacy Functional Status Combined list of recent functional and cognitive assessments recorded at Department of Defense and [facility] Affairs ([place] Functional [place] Measurement (FIM) Scale: 1 = Total Assistance (Subject = 0% +), 2 = Maximal Assistance (Subject = 25% +), 3 = Moderate Assistance (Subject = 50% +), 4 = Minimal Assistance (Subject = 75% +), 5 = Supervision, 6 = Modified [place] (Device), 7 = Complete [place] (Timely, Safely). Assessment Date/Time Source Assessment Type Assessment Skill Assessment Score Assessment Details No data available for this section
[2024-09-12] MEDS: LACTATED RINGERS 1,000 ML 30 ML IV CONT (10:50)
[2024-09-12 10:52] VITALS: BP 123/86; PULSE 82; RESP 20; TEMP 36.9; O2SAT 99; BMI 28.4
--- NOTE | 2024-09-12 11:31 | P.PNAN_ITS ---
Anes - Initial Pre Proc Eval Procedure: Operation Date: 09/12/24 11:45 Proposed Procedures p Closed Possible Open Reduction and Pinning Right Middle and Ring Finger Proximal Interphalangeal Joint Dislocation - Rudy Costa MD Date/Time: 09/12/24 11:31 Surgeon: Rudy Costa MD Pre Op Diagnosis: Dislocated Right Middle and Ring Finger Patient Data Age: 69 Gender: M Height: 1.83 m Weight: 95 kg Last Vital Signs Temp 36.9 C 09/12/24 10:52 Pulse 82 09/12/24 10:52 Resp 20 09/12/24 10:52 BP 123/86 09/12/24 10:52 Pulse Ox 99 09/12/24 10:52 O2 Del Method Room Air 09/12/24 10:52 Allergies Allergy/AdvReac Type Severity Reaction Status Date / Time No Known Allergies Allergy Mild Verified 09/12/24 10:20 Home Medications ?Medication ?Instructions ?Recorded ?Confirmed ?Type atorvastatin 20 mg tablet (Lipitor) 20 mg PO DAILY 09/10/24 09/12/24 History clonazepam 1 mg tablet (Klonopin) 1.5 mg PO DAILY 09/10/24 09/12/24 History levetiracetam 500 mg 2,000 mg PO DAILY 09/10/24 09/12/24 History tablet,extended release 24 hr (Keppra XR) meloxicam 15 mg tablet 15 mg PO DAILY 09/10/24 09/12/24 History paroxetine HCl 40 mg tablet (Paxil) 60 mg PO DAILY 09/10/24 09/12/24 History tamsulosin 0.4 mg capsule 0.4 mg PO DAILY 09/10/24 09/12/24 History cholecalciferol (vitamin D3) 10 10 mcg PO DAILY 09/11/24 09/12/24 History mcg (400 unit) capsule cyanocobalamin (vitamin B-12) 1,000 mcg PO DAILY 09/11/24 09/12/24 History 1,000 mcg capsule eqrlwqkp-fhj-llyxe acid 0.4 1 tablet PO DAILY 09/11/24 09/12/24 History mg-lycopene 300 mcg-lutein 250 mcg tablet (Centrum Silver) cephalexin 500 mg capsule 500 mg PO Q12H #14 caps 09/12/24 Rx oxycodone-acetaminophen 5 mg-325 1 tablet PO Q6H PRN pain #12 tabs 09/12/24 Rx mg tablet Patient hx anesthesia problems: none Family hx anesthesia problems: none Results Review: All pre-operative results and documents have been reviewed as part of the pre- operative evaluation. [facility] Past Medical History Medical History Fracture, metacarpal ORIF Generalized anxiety disorder BPH (benign prostatic hyperplasia) Tremors of nervous system Cerebellar ataxia History of seizure disorder History of hyperlipidemia Surgical History Surgical History Hx of cholecystectomy H/O knee surgery H/O wrist surgery Social History Social History Smoking status: Never smoker Smokeless tobacco user: snuff Alcohol intake: never Anes - Eval Final PreProcedure Day of Procedure 09/12/24 11:31 Patient weight: overweight Heart: regular rate and rhythm Lungs: decreased breath sounds Airway: Mallampati scale class II Neurological: alert and oriented Last oral intake: >/= 8 hours ASA classification: III Emergent: no Anesthetic plan: proceed Anesthesia type and monitoring: general GIVS and standard monitoring Results Review: All pre-operative results and documents have been reviewed as part of the pre- operative evaluation. Informed Consent: The patient's anesthetic plan and its attendant risks and benefits were disc ussed with the patient/family/POA. Questions were solicited and answers provided to the satisfaction of the patient/family/POA.
[2024-09-12] MEDS: ceFAZolin SODIUM 2 GM/20 ML SW SYRINGE IV PUSH (11:37)
[2024-09-12] MEDS: BUPivacaine HCL 0.5% PF 30 ML VIAL 5 ML INFILTRATE (11:47)
[2024-09-12] MEDS: LIDOCAINE 1% LOCAL INJ 20 ML VIAL 5 ML INFILTRATE (11:47)
[2024-09-12 12:11] VITALS: BP 116/78; PULSE 68; RESP 15; O2SAT 95
--- NOTE | 2024-09-12 12:18 | WPDANESPN ---
Anes - Prog Note Post-Op Date/Time: 09/12/24 12:18 Cardiovascular status: normal Respiratory status: normal Airway patency: baseline Mental status: baseline Post-Op hydration status: normal Vital Signs: Last Vital Signs Temp 36.9 C 09/12/24 10:52 Pulse 68 09/12/24 12:11 Resp 15 09/12/24 12:11 BP 116/78 09/12/24 12:11 Pulse Ox 95 09/12/24 12:11 O2 Del Method Room Air 09/12/24 12:11 Pain Score (VAS): 0 Patient Feedback: Patient satisfied with anesthetic care.
[2024-09-12 12:21] VITALS: BP 114/75; PULSE 67; RESP 15; O2SAT 97
[2024-09-12 12:31] VITALS: BP 123/77; PULSE 60; RESP 14; O2SAT 98
[2024-09-12 12:41] VITALS: BP 122/76; PULSE 61; RESP 16; O2SAT 98
[2024-09-12 12:51] VITALS: PULSE 68; RESP 15; O2SAT 99
== END 2024-09-12 13:05 | disposition home or self-care (01) ==
PROVIDERS: PCP Family Medicine; Visit Provider Plastic Surgery
PROC: (CPT 26776; principal; 2024-09-12 11:45)
DX: S63.282A Dislocation of proximal interphalangeal joint of right middle finger, initial encounter (principal); S63.284A Dislocation of proximal interphalangeal joint of right ring finger, initial encounter; W19.XXXA Unspecified fall, initial encounter
CPT/HCPCS: 26776 ×2; 99199

== ENCOUNTER 2024-09-24 14:34 | Outpatient (CLI) | payer MEDICARE, OTHER, SELFPAY ==
--- NOTE | ~2024-09-24 | XR_ITS ---
Right Hand Technique: PA, oblique, and lateral views were obtained. Clinical History: Dislocation COMPARISON: 09/10/2024 Findings: Status post orthopedic pinning across the third and fourth PIP joints. No definite fracture seen. Cast obscures fine bony detail. Prior ORIF of the distal radius.. Impression: Status post interval orthopedic pinning across the third and fourth PIP joints. Previously noted disl ocations appear to be reduced. Reviewed, dictated and finalized at location M. Impression: Status post interval orthopedic pinning across the third and fourth PIP joints. Previously noted dislocations appear to be reduced.
--- NOTE | ~2024-09-24 | XR_ITS ---
XR hand RT min 3V 09/24/2024 17:18 Indication: Pin removal Procedure: 3 views right hand Comparison: 09/10/2024 and 09/24/2024 Findings: Status post removal of metallic pins transfixing the third and fourth PIP joints. There is anatomic alignment. No gross fracture or malalignment. Fiberglass cast obscures detail of the third, fourth and fifth digits. Impression: 1: Status post pin removal from third and fourth proximal interphalangeal joints. Reviewed, dictated and finalized at location A. Impression: 1: Status post pin removal from third and fourth proximal interphalangeal joint s.
--- OUTSIDE RECORDS SUMMARY | 2024-09-24 14:43 | XMS_ITS | Encounter Summary ---
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
--- OUTSIDE RECORDS SUMMARY | 2024-09-24 14:43 | XMS_ITS | Continuity of Care Document ---
Author Name [facility] Organization [facility] Care Team Providers Care Major Assembler Name Role Phone [facility] Unavailable Unavailable Problems Combined list of problems from Department of Defense and Veterans Affairs facilities. It does not include entries that were removed or entered in error. Problem Status Onset Date Problem Type Date of Resolution Comments Source CEREBRAL ATAXIA Active Condition [facility] visit for: issue repeat prescription for medication Inactive Condition [facility] CERUMEN IMPACTION Inactive Condition DoD Medications Combined [...] KLONOPIN (clonazepam ), 1 MG, TABLET, ORAL, [employer], 100 ea. BOTTLE Active [id number] 4 2023 135 Pharmac y Data Transac tion Service Facilit y LEVETIRACET AM (LEVETIRACE CONTI), 500 MG, TAB ER 24H, ORAL, [employer] 60 ea. BOTTLE Active [id number] 4 2023 360 Pharmac y Data Transac [...] Known Allergies Drug allergy (disorder) active 06/02/2006 [facility] Immunizations Combined list of available immunizations from the Department of Defense and Veterans Affairs facilities. Immunization Series Date Given Administered By Site Reaction Lot Number CVX Code Drug Motor Operator Status Comments Source COVID-19, mRNA, LNP-S, PF, 30 mcg/0.3 mL dose 2020 [employer] [place] (PFR) Not Given COVID-19, mRNA, LNP-S, PF, 30 mcg/0.3 mL dose DoD zoster vaccine live 2014 zAdrien membreno Arm [id number] [employer] complet ed zoster vaccine live 08/27/14 Given Ambulat ory Pharmac y zoster vaccine, live 1 2014 Unknown, Provider [id number] [employer]ck (MSD) complet ed zoster vaccine, [...] ADM Date DC Date Status Disposition Source [address] [place] [address])([facility] Non-GME FHI1) OUTPATIENT [id number] left ear clogged JUAN HANSEN 12/06 Released w/o Limitations [address] [place] [address])(F amily Practic e Non-GME FHI1) [address] [place] [address])([facility] Practice Non-GME FHI1) TELE CONSULT [id number] Refill of ANGELIQUE Perea 02/[address] [place] [address])(F amily Practic e Non-GME FHI1) [address] [place] [address])([facility]am [facility]ra Practice Non-GME FHI1) TELE CONSULT [id number] MED REFILL- -SERA NICHOLS 09/[address] [place] [address])(F amily Practic e Non-GME FHI1) [address] [place] [address])([facility]am [facility]ra Practice Non-GME FHI1) TELE CONSULT [id number] SERA Sommers 09/[address] [place] [address])(F amily Practic e Non-GME FHI1) [address] [place] [address])([facility]am [facility]ra Practice Non-GME FHI1) TELE CONSULT [id number] med refill EDGAR STOKES 03/[address] [place] [address])(F amily Practic e Non-GME FHI1) [address] [place] [address])([facility]am [facility]ra Practice Non-GME FHI1) TELE CONSULT [id number] New Referra l for Neurolo gy EDGAR STOKES 06/[address] [place], [place] [address]B ([facility])(F amily Practic e Non-GME FHI1) Procedures Combined list of: 1) Procedures from Department of Veterans Affairs facilities going back up to thelast 18 months, not all [place] non-surgical procedures are included; 2) All procedures from the Department of Defense facilities. Procedure Procedure Type Code Date Perfomer Comments Sourc e No data available for this section Ambulato ry Pharmacy Cerumen Removal 5 JUAN HANSEN S [facility] ALCOHOL REHABILITATION 4 [facility] OCCUPATIONAL THERAPY 99 4 [facility] REMOVAL IMPACTED CERUMEN REQUIRING INSTRUMENTATION, UNILATERAL 5 DoD DIGITAL RECTAL EXAMINATION, ANNUAL 3 [facility] Social History Combined list of available smoking, tobacco, and other social history from Department of Defense and Veterans Affairs facilities. Social History Type Response Date Comment Sourc e Sex Representation Male (finding) 01/22/2020 Un known Organization Sexual Orientation Ambula tory Pharmacy Gender identity Ambulator y Pharmacy This section is an empty social history section. [facility] Assessment and Plan Combined list of future care activities from Department of Defense and Veterans Affairs facilities (e.g., assessment and plan notes, appointments, orders, and referrals). Additional future care activities may be listed in the Plan of Care section. Result Assessment and Plan Date Source Assessment and Plan No data available for this section 09/24/2024 Ambulatory Pharmacy Functional Status Combined list of recent functional and cognitive assessments recorded at [facility] and [facility] [place] Functional [place] Measurement (FIM) Scale: 1 = Total Assistance (Subject = 0% +), 2 = Maximal Assistance (Subject = 25% +), 3 = Moderate Assistance (Subject = 50% +), 4 = Minimal Assistance (Subject = 75% +), 5 = Supervision, 6 = Modified [place] (Device), 7 = Complete [place] (Timely, Safely). Assessment Date/Time Source Assessment Type Assessment Skill Assessment Score Assessment Details No data available for this section
--- OUTSIDE RECORDS SUMMARY | 2024-09-24 14:43 | XMS_ITS | Clinical Summary ---
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
--- OUTSIDE RECORDS SUMMARY | 2024-09-24 14:43 | XMS_ITS | Referral Summary ---
Author Organization [facility] Address [address] [place] [address] Care Team Providers Care Heading Matcher And Assembler Name Role Phone uJan Villa MD Primary Care Provider + Encounters Date Type Department Care Team Description 09/04/2024 3:00 PM CDT Office Visit [facility] Primary Care [facility] [address] [place] [address] Juan Villa MD DAREN (generalized anxiety disorder) (Primary Dx); Moderate episode of recurrent major depressive disorder (HCC); Cerebellar ataxia (HCC); Dyslipidemia; Benign prostatic hyperplasia with urinary hesitancy; Walker as ambulation aid 08/27/2024 Orders Only [facility] Health Information Management [address] [place] [id number] Scanning, Provider from Last 3 Months Allergies No known active allergies Medications ascorbic acid, vitamin C, 500 mg capsule 500 mg Ac tive calcium carbonate (CALTRATE 600 ORAL) Rx: Caltrate 600 1500 (600 Ca) MG Tablet Active qrxicspb-ltc-IH-lycopen- lutein 300-600-300 mcg tablet Rx: Centrum Silver [...] 03/18/2024 Assessment & Plan (04/12/2024 2:28 PM ROLL ON WORKER): - continue care per ortho Assessment & Plan (03/18/2024 4:07 PM ROLL ON WORKER): - xray reviewed by me - displaced [...] 03/31/2023 Assessment & Plan (04/12/2024 2:28 PM ROLL ON WORKER): - stable - continue atorvastatin Assessment & Plan (10/11/2023 4:40 PM CDT): - stable - continue atorvastatin Assessment & Plan (03/31/2023 2:58 PM ROLL ON WORKER): - stable - continue current medication Rib pain 01/25/2022 Assessment & Plan (01/25/2022 3:23 PM CDT): - suspect just bruising to area but will check xray given pt sensation of popping in the rib area with certain movements - tylenol for pain Encounter for annual wellness exam in Medicare p atient 12/21/2021 Assessment & Plan (04/12/2024 2:27 PM ROLL ON WORKER): - Reviewed with the patient BMI, blood pressure, diet, exercise, and encouraged healthy lifestyle choices. - Screened for high risk behaviors, diet and exercise habits, and symptoms of depression. - check screening labs - encouraged regular exercise, healthy lifestyle, obtain/maintain healthy weight Assessment & Plan (03/31/2023 2:57 PM ROLL ON WORKER): - Reviewed with the patient BMI, blood [...] 04/17/2020 Assessment & Plan (04/12/2024 2:28 PM ROLL ON WORKER): - uncontrolled - offered urology referral but pt refused Assessment & Plan (10/11/2023 4:37 PM CDT): - poor control - continue flomax 1 tab daily - offered referral to urology but pt refused. Assessment & Plan (03/31/2023 2:56 PM ROLL ON WORKER): - uncontrolled - increase flomax to 0.8mg daily - if no improvement will ref to urology for eval Assessment & Plan (02/12/2021 4:53 PM CDT): - stable - continue current medication Assessment & Plan (04/17/2020 2:15 PM ROLL ON WORKER): - uncontrolled - start flomax - f/u in 3-6 mo for re-eval Osteoarthritis 04/17/2020 Assessment & Plan (03/31/2023 2:57 PM ROLL ON WORKER): - stable - continue current medication Assessment & Plan (04/17/2020 2:15 PM ROLL ON WORKER): - stable - continue current medication Depression 02/15/2019 Assessment & Plan (04/12/2024 2:27 PM ROLL ON WORKER): - stable but still sx - continue paxil 60 mg daily - offered to start trazodone or seroquel; pt has failed wellbutrin in the past - pt not interested in further medication. Pt also refusing change in med to alternate ssri. Assessment & Plan (03/31/2023 2:57 PM ROLL ON WORKER): - stable - continue current medication Assessment & Plan (04/17/2020 2:15 PM ROLL ON WORKER): - stable - continue current medication Assessment & Plan (10/21/2019 1:39 PM CDT): - stable - continue paxil 60mg daily DAREN (generalized anxiety disorder) 02/15/2019 Assessment & Plan (04/12/2024 2:27 PM ROLL ON WORKER): - stable - continue paxil as noted above. Assessment & Plan (10/11/2023 4:37 PM CDT): - uncontrolled - rec counseling - rec addition of seroquel but pt refusing - continue paxil. - f/u if sx worsen or wants to start medication. 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 Assessment & Plan (03/31/2023 2:56 PM ROLL ON WORKER): - stable - continue current medication per [...] 04/16/2010 Assessment & Plan (04/12/2024 2:26 PM ROLL ON WORKER): - stable - continue current medication Assessment & Plan (03/31/2023 2:57 PM ROLL ON WORKER): - stable - continue current medication Resolved [...] medication. Assessment & Plan (03/31/2023 2:57 PM ROLL ON WORKER): - stable - continue current medication - [...] 02/15/2019,01/26/2015,12/24/2014 Influenza, Unspecified 03/18/2024(Deferr ed: Patient Refused),01/13/2021 [employer] SARS-CoV-2 Monovalent Vaccination (12+ Yrs) PURPLE 01/13/2021,12/23/2020 [...] on file Legal Sex Male 3:22 AM ROLL ON WORKER Gender Identity Male 01/14/2019 8:10 PM CDT [...] 3:04 PM CDT Height 180.3 cm (5' 11) 09/04/2024 3:04 PM CDT Body Mass Index 29.43 09/04/2024 3:04 PM CDT Plan of Treatment Not on file Medical Devices Implanted Type Area [employer] Device Identifier Shelf Expiration Date Model / Serial / Lot Right Wrist Right: Wrist Knee Replacement Right: Knee 1.1 K-Wire Implanted:Qty: 2 on 03/26/2024 by Fawad Cook MD at [facility] Left: Metacarpal [employer] [id number] 3 / / Explanted Type Area [employer] Device Identifier Shelf Expiration Date Model / Serial / Lot [employer] Plate Bone Rotation Correction 5 Hole Small Bone 1.6mm Ti [id number] - [id number] Explanted:Qty: 1 on 03/26/2024 by Fawad Cook MD at [facility] Plate Left: Metacarpal [employer] [id number] 30 / / [employer] Screw Bone Cortical Threaded 1.6x8mm Ti [id number] - [id number] Explanted:Qty: 1 on 03/26/2024 by Fawad Cook MD at [facility] Screw Left: Metacarpal [employer] AR-[id number] 8 / / [employer] Screw Bone Threaded Locking 1.6x12mm Ti [id number] - [id number] Explanted:Qty: 1 on 03/26/2024 by Fawad Cook MD at [facility] Screw Left: Metacarpal [employer] [id number] / / Procedures Procedure Name Priority Date/Time Associated Diagnosis Comments SCAN - RADIOLOGY/IMAGING 08/27/2024 PSA SCREEN Routine 03/17/2023 1:51 PM ROLL ON WORKER Encounter for Medicare annual wellness exam COLONOSCOPY Routine 03/20/2015 from Last 3 Months or Most Recently Relevant to Health Maintenance Results * SCAN - RADIOLOGY/IMAGING (08/27/2024) Anatomical Region Laterality Modality Other us Provider Scanning Final Result * PSA screen (03/17/2023 1:51 PM ROLL ON WORKER) PSA-Total 3.17 <=5.40 ng/mL HEIDI LEE Comment: [...] data last revised 21. Testing performed by: [facility], [address] [place] [address]., [id number] Blood 03/17/2023 1:51 PM ROLL ON WORKER 03/17/2023 5:03 PM ROLL ON WORKER Juan Villa MD LAB BLOOD ORDERABLES Fin al Result HEIDI LEE [address] Department [place] [address] * Colonoscopy (03/20/2015) Anatomical Region Laterality Modality Other 03/20/2015 us Historical Provider ENDOSCOPY PROCEDURES Deneen l Result from Last 3 Months or Most Recently Relevant to Health Maintenance Insurance MEDICARE [employer] [place] [id number] MEDICARE FOR LIFE Advance Directives For more information, please contact: [phone] * LIMITED - No CPR (Latest Code [...] 7:23 PM 12/01/2021 11:19 PM Care Teams Heading Matcher And Assembler Relationship Specialty Start Date End Date Juan Villa MD [address] [place], [place] [address] PCP - General Family Medicine 02/15/19
--- OUTSIDE RECORDS SUMMARY | 2024-09-24 14:43 | XMS_ITS | Clinical Summary ---
Author Organization [facility] Address [address] [place] [address] Care Team Providers Care Ski Production Supervisor Name Role Phone Juan Villa MD Primary Care Provider + Allergies No known active allergies Medications ascorbic acid, vitamin C, 500 mg capsule 500 mg Ac tive calcium carbonate (CALTRATE 600 ORAL) Rx: Caltrate 600 1500 (600 Ca) MG Tablet Active nfwlpfph-kdl-OE-lycopen- lutein 300-600-300 mcg tablet Rx: Centrum Silver [...] 03/18/2024 Assessment & Plan (04/12/2024 2:28 PM HR ANALYST): - continue care per ortho Assessment & Plan (03/18/2024 4:07 PM HR ANALYST): - xray reviewed by me - displaced [...] 03/31/2023 Assessment & Plan (04/12/2024 2:28 PM HR ANALYST): - stable - continue atorvastatin Assessment & Plan (10/11/2023 4:40 PM CDT): - stable - continue atorvastatin Assessment & Plan (03/31/2023 2:58 PM HR ANALYST): - stable - continue current medication Rib pain 01/25/2022 Assessment & Plan (01/25/2022 3:23 PM CDT): - suspect just bruising to area but will check xray given pt sensation of popping in the rib area with certain movements - tylenol for pain Encounter for annual wellness exam in Medicare p atient 12/21/2021 Assessment & Plan (04/12/2024 2:27 PM HR ANALYST): - Reviewed with the patient BMI, blood pressure, diet, exercise, and encouraged healthy lifestyle choices. - Screened for high risk behaviors, diet and exercise habits, and symptoms of depression. - check screening labs - encouraged regular exercise, healthy lifestyle, obtain/maintain healthy weight Assessment & Plan (03/31/2023 2:57 PM HR ANALYST): - Reviewed with the patient BMI, blood [...] 04/17/2020 Assessment & Plan (04/12/2024 2:28 PM HR ANALYST): - uncontrolled - offered urology referral but pt refused Assessment & Plan (10/11/2023 4:37 PM CDT): - poor control - continue flomax 1 tab daily - offered referral to urology but pt refused. Assessment & Plan (03/31/2023 2:56 PM HR ANALYST): - uncontrolled - increase flomax to 0.8mg daily - if no improvement will ref to urology for eval Assessment & Plan (02/12/2021 4:53 PM CDT): - stable - continue current medication Assessment & Plan (04/17/2020 2:15 PM HR ANALYST): - uncontrolled - start flomax - f/u in 3-6 mo for re-eval Osteoarthritis 04/17/2020 Assessment & Plan (03/31/2023 2:57 PM HR ANALYST): - stable - continue current medication Assessment & Plan (04/17/2020 2:15 PM HR ANALYST): - stable - continue current medication Depression 02/15/2019 Assessment & Plan (04/12/2024 2:27 PM HR ANALYST): - stable but still sx - continue paxil 60 mg daily - offered to start trazodone or seroquel; pt has failed wellbutrin in the past - pt not interested in further medication. Pt also refusing change in med to alternate ssri. Assessment & Plan (03/31/2023 2:57 PM HR ANALYST): - stable - continue current medication Assessment & Plan (04/17/2020 2:15 PM HR ANALYST): - stable - continue current medication Assessment & Plan (10/21/2019 1:39 PM CDT): - stable - continue paxil 60mg daily DAREN (generalized anxiety disorder) 02/15/2019 Assessment & Plan (04/12/2024 2:27 PM HR ANALYST): - stable - continue paxil as noted above. Assessment & Plan (10/11/2023 4:37 PM CDT): - uncontrolled - rec counseling - rec addition of seroquel but pt refusing - continue paxil. - f/u if sx worsen or wants to start medication. 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 Assessment & Plan (03/31/2023 2:56 PM HR ANALYST): - stable - continue current medication per [...] 04/16/2010 Assessment & Plan (04/12/2024 2:26 PM HR ANALYST): - stable - continue current medication Assessment & Plan (03/31/2023 2:57 PM HR ANALYST): - stable - continue current medication Resolved [...] medication. Assessment & Plan (03/31/2023 2:57 PM HR ANALYST): - stable - continue current medication - [...] Description 09/04/2024 3:00 PM CDT Office Visit [facility] Primary Care [address] [place] [phone] Juan Villa MD DAREN (generalized anxiety disorder) (Primary Dx); Moderate episode of recurrent major depressive disorder (HCC); Cerebellar ataxia (HCC); Dyslipidemia; Benign prostatic hyperplasia with urinary hesitancy; Walker as ambulation aid 08/27/2024 Orders Only [facility] Health Information Management [address] [place] [address] Scanning, Provider from Last 3 Months Immunizations Immunization Administration Dates Next Due Influenza, Quadrivalent, Hig h Dose, Preservative Free, Intrr 03/31/2023,01/25/2022 Influenza, Quadrivalent, Spl it, Preservative Free, Intramuscular 02/15/2019,01/26/2015,12/24/2014 Influenza, Unspecified 03/18/2024(Deferr ed: Patient Refused),01/13/2021 Ampulse SARS-CoV-2 Monovalent Vaccination (12+ Yrs) PURPLE 01/13/2021,12/23/2020 [...] Markellarturo Gillis Alcohol abuse Father's Brother 1 [place] Alejandro Depression Father's Brother 1 [place] Alejandro Alcohol abuse Father's Brother 2 Ari Alejandro Cancer Father's Brother 2 Ari Alejandro Depression Father's Brother 2 Ari Alejandro Alcohol abuse Father's Brother 3 Cristobal Alejandro Alzheimer's disease Father's Sister Luigi Harrison Hearing loss Mother Wili Gillis Heart disease Paternal Grandfather Melecio Gillis Relation Name Status Comments Brother 1 Brother 2 Logan Gillis Daughter 1 Alive Daughter 2 July [place] Daughter 3 Varsha Gillis Daughter 4 Shawna Hankins Father Markell Gillis (Age 80) Father's Brother 1 [place] Alejandro Father's Brother 2 Ari Alejandro Father's [...] on file Legal Sex Male 3:22 AM HR ANALYST Gender Identity Male 01/14/2019 8:10 PM [...] 03/31/2023, 11/30 Medical Devices Implanted Type Area Cook Chief Device Identifier Shelf Expiration Date Model / Serial / Lot Right Wrist Right: Wrist Knee Replacement Right: Knee 1.1 K-Wire Implanted:Qty: 2 on 03/26/2024 by Fawad Cook MD at [facility] Left: Metacarpal [employer] [id number] 3 / / Explanted Type Area Cook Chief Device Identifier Shelf Expiration Date Model / Serial / Lot [employer] Plate Bone Rotation Correction 5 Hole Small Bone 1.6mm Ti [id number] - [id number] Explanted:Qty: 1 on 03/26/2024 by Fawad Cook MD at [facility] Plate Left: Metacarpal [employer] [id number]- 30 / / [employer] Screw Bone Cortical Threaded 1.6x8mm Ti [id number] - [id number] Explanted:Qty: 1 on 03/26/2024 by Fawad Cook MD at [facility] Screw Left: Metacarpal [employer] AR-[id number] 8 / / [employer] Screw Bone Threaded Locking 1.6x12mm Ti [id number] - [id number] Explanted:Qty: 1 on 03/26/2024 by Fawad Cook MD at [facility] Screw Left: Metacarpal [employer] [id number] 12 / / Procedures Procedure Name Priority Date/Time Associated Diagnosis Comments SCAN - RADIOLOGY/IMAGING 08/27/2024 PSA SCREEN Routine 03/17/2023 1:51 PM HR ANALYST Encounter for Medicare annual wellness exam COLONOSCOPY Routine 03/20/2015 from Last 3 Months or Most Recently Relevant to Health Maintenance Results * SCAN - RADIOLOGY/IMAGING (08/27/2024) Anatomical Region Laterality Modality Other us Provider Scanning Final Result * PSA screen (03/17/2023 1:51 PM HR ANALYST) PSA-Total 3.17 <=5.40 ng/mL HEIDI Comment: Interpretive [...] revised 21. Testing performed by: [facility], [address] [place] [address]., [id number] Blood 03/17/2023 1:51 PM HR ANALYST 03/17/2023 5:03 PM HR ANALYST Juan Villa MD LAB BLOOD ORDERABLES Fin al Result HEIDI [address] [facility] Department [place] [address] * Colonoscopy (03/20/2015) Anatomical Region Laterality Modality Other 03/20/2015 [facility]ger Provider ENDOSCOPY PROCEDURES Deneen l Result from Last 3 Months or Most Recently Relevant to Health Maintenance [place] [address] [employer] MEDICARE FOR LIFE MEDICARE FOR LIFE Advance Directives For more information, please contact: [phone] * LIMITED - No CPR (Latest Code [...] 7:23 PM 12/01/2021 11:19 PM Care Teams Ski Production Supervisor Relationship Specialty Start Date End Date Juan Villa MD [address] [place] [id number] PCP - General Family Medicine 02/15/19
== END 2024-09-24 14:35 | disposition home or self-care (01) ==
PROVIDERS: PCP Family Medicine; Visit Provider Physician Assistant Surgical
DX: Z47.2 Encounter for removal of internal fixation device (principal); S63.282A Dislocation of proximal interphalangeal joint of right middle finger, initial encounter; S63.284A Dislocation of proximal interphalangeal joint of right ring finger, initial encounter; X58.XXXA Exposure to other specified factors, initial encounter
CPT/HCPCS: 73130

== ENCOUNTER 2024-11-22 11:00 | Outpatient (RCR) | payer MEDICARE, OTHER, SELFPAY ==
--- NOTE | 2024-10-07 15:04 | OTOPEVAL1 ---
Assessment and note entered by Asaf Prasad, PAWEL/Parish, CHT Evaluation Information Assessment Status Evaluation Diagnosis S63.259A Subjective Information Patient is s/p right middle finger and ring finger PIP joint dislocation CRPP 09/12/24 and subsequent pin removal 09/24/24. Reported Pain Level Pain Score 1: Self Report Assessment OT Clinical Summary Patient referred to OT following right middle and ring finger PIP joint dislocation s/p CRPP and subsequent pin removal. He presents today for extension blocking splints to limit PIP extension past 15 degrees. At this time the patient's middle finger measures -55 deg. extension at the PIP joint and the ring finger measures -75 degrees at the PIP joint. Issued custom splints and active ROM HEP. The patient verbalized many times he is not interested in following up weekly. He was agreeable to another appointment in 3 weeks. Plan to follow up in 3 weeks. Plan of Care Interventions Therapeutic Exercise,Manual Therapy,Therapeutic Activities OT Services Indicated Yes Treatment Frequency and Follow up in 3 weeks. Duration These treatments will address the objective and functional deficits as defined above. The patient will be advanced safely and appropriately in order for the patient to progress towards his/her prior level of function. Additional exercises will be introduced and as well as a comprehensive home exercise program upon discharge, if needed, ?to ensure carryover of functional gains achieved in the clinic. This treatment plan has been reviewed and agreement upon by the patient.
--- NOTE | 2024-10-07 15:05 | OPREHPOC ---
Outpatient Therapy Plan of Care This is a Multidisciplinary Plan of Care that may contain components documented by all disciplines (PT, OT, and ST.) OT Problem 1 OT Problem #1 Knowledge Deficit OT Goal 1 Goal / Goal Update Patient to be independent with instructed materials. Target Visit 2 OT Problem 2 OT Problem #2 Impaired Range of Motion OT Goal 1 Goal / Goal Update Patient to be able to increase (R) middle and ring finger PIP extension to -15 degrees. Target Visit 2
--- NOTE | 2024-10-28 14:25 | OTOPPROG ---
Assessment and note entered by Asaf Prasad, PAWEL/Parish, CHT OT Progress Update 10/28/24 Diagnosis S63.259A Subjective Information Patient is s/p right middle finger and ring finger PIP joint dislocation CRPP 09/12/24 and subsequent pin removal 09/24/24. Patient was evaluated initially on 10/07/24, but verbalized being uninterested in following up weekly. He presents today, 3 weeks later, for re-eval and follow up. He presents today in finger extension splints he purchased off of [employer]. He reports minimal pain, but is unhappy with his ROM, particularly into extension. Finger flexion into a fist is WFL. Right middle finger PIP extension improved from - 55 deg. to -45 deg. extension lag. Right ring finger PIP extension improved from -75 deg. to -60 deg. extension lag. Assessment OT Clinical Summary Patient referred to OT following right middle and ring finger PIP joint dislocation s/p CRPP and subsequent pin removal. He presents today in finger extension splints he purchased. These do not push him to his limit of -15 deg. of extension : right middle finger rests in -30 deg. of extension and right right ring finger rests in -35 deg. of extension with the splints on. Reviewed HEP: lumbricals, hook fist, and finger ab/ adduction. He completes with cues. Continued skilled OT indicated for use of modalities, therapeutic exercise, HEP progression, and therapeutic activities to facilitate optimal functional hand use of his right, dominant hand. At first the patient was resistant to following up regularly. Discussed with patient the benefits of following up weekly and was agreeable to making 2 more appointments. Plan of Care Interventions Therapeutic Exercise,Manual Therapy,Therapeutic Activities OT Services Indicated Yes Treatment Frequency and 1x/week for 3 weeks Duration At first the patient was resistant to following up regularly. Discussed with patient the benefits of following up weekly and was agreeable to making 2 more appointments. These treatments will address the objective and functional deficits as defined above. The patient will be advanced safely and appropriately in order for the patient to progress towards his/her prior level of function. Additional exercises will be introduced and as well as a comprehensive home exercise program upon discharge, if needed, ?to ensure carryover of functional gains achieved in the clinic. This treatment plan has been reviewed and agreement upon by the patient.
--- NOTE | 2024-10-28 14:26 | OPREHPOC ---
Outpatient Therapy Plan of Care This is a Multidisciplinary Plan of Care that may contain components documented by all disciplines (PT, OT, and ST.) OT Problem 1 OT Problem #1 Knowledge Deficit OT Goal 1 Goal / Goal Update Patient to be independent with instructed materials. ---OT POC UPDATE 10/28/24--- Met, continue as HEP is progressed Target Visit 5 OT Problem 2 OT Problem #2 Impaired Range of Motion OT Goal 1 Goal / Goal Update Patient to be able to increase (R) middle and ring finger PIP active extension to -15 degrees. ---OT POC UPDATE 10/28/24--- Progressing, not met, continue goal Target Visit 5
--- NOTE | 2024-11-22 12:00 | OTOPPROG ---
Assessment and note entered by Asaf Prasad, PAWEL/Parish, CHT OT Progress Update 11/22/24 Diagnosis [id number] Subjective Information Patient is s/p right middle finger and ring finger PIP joint dislocation CRPP 09/12/24 and subsequent pin removal 09/24/24. Patient reports noticing improvements with being able to make a fist, but has concerns about the lack of extension in the middle and ring fingers. Active ROM: Right middle finger PIP extension improved from - 45 deg. to -35 deg. extension lag. Right ring finger PIP extension remained at -60 deg. extension lag. Passive ROM: Both PIP joints are able to be passively mobilized to -15 deg. extension lag. Assessment OT Clinical Summary Patient referred to OT following right middle and ring finger PIP joint dislocation s/p CRPP and subsequent pin removal. He is making progress with active extension of the right middle finger PIP joint (10 deg. improvement). The right ring finger continues to measure 60 deg. extension lag. Both joints are able to passively stretch to -15 deg. extension lag, which improved from -30 deg. for the middle finger and -35 deg. for the ring finger . Applied dynamic PIP extension splints today. With some difficulty due to the patient's ataxia, he was able to don the splints for PIP extension at -15 deg. 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 Patient reports he is not interested in continued follow up with therapy at this time and prefers to continue to do the HEP on his own. Plan to leave his chart open x4 weeks for him to return for any questions. D/C by 12/20/24 if he does not schedule a follow up. Plan of Care Interventions Therapeutic Exercise,Manual Therapy,Therapeutic Activities OT Services Indicated Yes Treatment Frequency and Patient reports he is not interested in continued Duration follow up with therapy at this time and prefers to continue to do the HEP on his own. Plan to leave his chart open x4 weeks for him to return for any questions. D/C by 12/20/24 if he does not schedule a follow up. These treatments will address the objective and functional deficits as defined above. The patient will be advanced safely and appropriately in order for the patient to progress towards his/her prior level of function. Additional exercises will be introduced and as well as a comprehensive home exercise program upon discharge, if needed, ?to ensure carryover of functional gains achieved in the clinic. This treatment plan has been reviewed and agreement upon by the patient.
--- NOTE | 2024-11-22 12:01 | OPREHPOC ---
Outpatient Therapy Plan of Care This is a Multidisciplinary Plan of Care that may contain components documented by all disciplines (PT, OT, and ST.) OT Problem 1 OT Problem #1 Knowledge Deficit OT Goal 1 Goal / Goal Update Patient to be independent with instructed materials. ---OT POC UPDATE 10/28/24--- Met, continue as HEP is progressed ---OT POC UPDATE 11/22/24--- Met Target Visit 8 OT Problem 2 OT Problem #2 Impaired Range of Motion OT Goal 1 Goal / Goal Update Patient to be able to increase (R) middle and ring finger PIP active extension to -15 degrees. ---OT POC UPDATE 10/28/24--- Progressing, not met, continue goal ---OT POC UPDATE 11/22/24--- Not met Target Visit 8
== END 2025-01-05 23:59 | disposition home or self-care (01) ==
LOC: ANHOT 11:00
PROVIDERS: Visit Provider Physician Assistant Surgical
DX: S63.252A Unspecified dislocation of right middle finger, initial encounter (principal)
CPT/HCPCS: 97018; 97110; 97140; 97165; L3933

== ENCOUNTER 2025-02-21 11:15 | Outpatient (RCR) | payer MEDICARE, OTHER, SELFPAY ==
--- NOTE | 2025-01-28 11:30 | OTOPEVAL1 ---
Assessment and note entered by Asaf Prasad, ZORANR/Parish, CHT Evaluation Information Diagnosis Unspecified dislocation of unspecified finger Subjective Information Patient is s/p right middle finger and ring finger PIP joint dislocation s/p CRPP 09/12/24 and subsequent pin removal 09/24/24. Patient has been wearing PIP finger spring splints to achieve greater PIP extension with good results. 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 Active ROM: Right middle finger PIP extension improved from - 35 deg. extension lag to -15 deg. extension lag Right ring finger PIP extension improved from -60 deg. extension lag to -30 deg. extension lag Assessment OT Clinical Summary Patient referred to OT following right middle and ring finger PIP joint dislocations s/p CRPP and subsequent pin removal. He stopped coming to the clinic 11/22 due to wanting to continue his HEP on his own. Patient reports frequent falls where he bumps his fingers and gets set back and thus wanted to continue regular follow up appointments. Patient was re-evaluated today. PIP extension is making good progress, he has been very compliant with splinting and working on his ROM. 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 After some mobilization and wash test checker strengthening with putty the PIP joint did improve to 45 degrees . Continued skilled OT indicated for use of modalities, manual therapy, therapeutic exercise, and HEP progression to facilitate improved functional hand ROM, strength, and use. Plan of Care Interventions Therapeutic Exercise,Manual Therapy,Neuro Re- education,Therapeutic Activities,Hot Pack/Cold Pack,Paraffin OT Services Indicated Yes Treatment Frequency and 2x/week for 8 visits Duration These treatments will address the objective and functional deficits as defined above. The patient will be advanced safely and appropriately in order for the patient to progress towards his/her prior level of function. Additional exercises will be introduced and as well as a comprehensive home exercise program upon discharge, if needed, ?to ensure carryover of functional gains achieved in the clinic. This treatment plan has been reviewed and agreement upon by the patient.
--- NOTE | 2025-01-28 11:30 | OPREHPOC ---
Outpatient Therapy Plan of Care This is a Multidisciplinary Plan of Care that may contain components documented by all disciplines (PT, OT, and ST.) OT Problem 1 OT Problem #1 Knowledge Deficit OT Goal 1 Goal / Goal Update 1. Pt to be indep. with instructed materials. ---OT POC UPDATE 01/28/25--- 1. Met, continue as HEP is progressed Target Visit 16 OT Problem 2 OT Problem #2 Impaired Range of Motion OT Goal 1 Goal / Goal Update 1. Patient to be able to increase (R) middle and ring finger extension to -15 degrees. ---OT POC UPDATE 01/28/25--- 1. Met with middle, not met with ring NEW GOAL 2. Patient to increase (R) middle and ring finger PIP flexion to 85 degrees. Target Visit 16
--- NOTE | 2025-02-03 11:18 | PCOTNOTE ---
Patient called & cancelled scheduled appointment this date due to not feeling well.
--- NOTE | 2025-02-21 11:53 | OTOPDC ---
Assessment and note entered by Asaf Prasad, OTR/L, CAITLIN OT D/C 02/21/25 Assessment Status Discharge Diagnosis Unspecified dislocation of unspecified finger Subjective Information Patient is s/p right middle finger and ring finger PIP joint dislocation s/p CRPP 09/12/24 and subsequent pin removal 09/24/24. Patient has been wearing PIP finger spring splints to achieve greater PIP extension with good results. 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 Active ROM: Right middle finger PIP extension remained at -15 deg. extension lag Right middle finger PIP flexion improved from 55 deg. Right ring finger PIP extension remained at -30 deg. extension lag Right ring finger PIP flexion improved to 70 deg. 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 (L) 101 lbs. Reported Pain Level Pain Score 0: Self Report Assessment OT Clinical Summary Patient referred to OT following right middle and ring finger PIP joint dislocations s/p CRPP and subsequent pin removal. Patient reports frequent falls where he bumps his fingers and gets set back. Patient was re-evaluated today. PIP extension measures the same as the previous re- assessment, he has been compliant with splinting and working on his ROM. PIP flexion of the middle finger has progressed, measuring 55 degrees today, improved from 35 degrees. 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 He has been working with putty for improved rn diabetes educator and flexibility. Patient reports he would like to be discharged today to work on his HEP on his own. D/ C with HEP. Plan of Care OT Services Indicated No
== END 2025-04-28 23:59 | disposition home or self-care (01) ==
LOC: ANHOT 11:15
PROVIDERS: Visit Provider Plastic Surgery
DX: S63.259A Unspecified dislocation of unspecified finger, initial encounter (principal)
CPT/HCPCS: 97110; 97140